=== PATIENT | male | born 1950 | race Caucasian/White ===

== ENCOUNTER 2016-10-15 01:40 | Inpatient (IN) | payer OTHER, MEDICARE ==
[~2016-10-15] VITALS: Ht 182.9 cm; Wt 186.2 kg
[~2016-10-15 01:40] MED LIST: ACID CONTROL150 MG PO; ADVAIR HFA120 INHAL1 IH; AMLODIPINE BESYL5 MG PO; AMLODIPINE PO; ANUCORT-HC25 MG PR; ANUCORT-HC25 MG RC; ASPIR 8181 M1 PO; ASPIR-LOW81 MG PO; ASPIRIN325 MG PO; AVELOX400 MG PO; AZOR 10/40 M1 TABLET; AZOR 10/40 M1 TABLET PO; BACTRIM,SEPT1 TABLET PO; BENICAR40 MG PO; BRINTELLIX10 MG PO; BRINTELLIX20 MG PO; BRINTELLIX5 MG PO; CARVEDILOL12.5 MG PO; CENTRUM SILVER1 EAC3 PO; CITALOPRAM HBR20 MG PO; CLINDAMYCIN HC300 MG PO; COLACE100 MG PO; COREG12.5 M1 PO; COUMADIN7.5 MG PO; COZAAR100 MG PO; DAILY VITAMIN1 EAC8 PO; DUONEB 2.5-0.5 M3 ML IPPB; FEROSUL325 MG PO; FLORASTOR250 MG PO; FUROSEMIDE40 MG; FUROSEMIDE40 MG PO; FUROSEMIDE80 MG PO; GEMFIBROZIL600 MG; GLUCOPHAGE1000 MG PO; Glucophage PO; HEARTBURN150 MG PO; HUMALOG100 UNIT/1 SC; HUMALOG100 UNIT/2 SC; HUMALOG100 UNITS/ SQ; HUMULIN N100 UNIT/2 SC; HUMULIN N100 UNITS/ SC; HYDROCHLOROTHIAZIDE PO; HYDROMORPHONE HC4 MG PO; INVOKANA300 MG PO; IRON325 MG PO; JANUVIA100 MG PO; JANUVIA25 M1 PO; K-DUR20 MEQ PO; KADIAN100 MG PO; KAPIDEX60 MG PO; KEPPRA500 MG PO; LANTUS 3 M100 UNITS/ SC; LANTUS 3 M100 UNITS1 SC; LANTUS100 UNIT/1 SQ; LASIX40 MG PO; LEVAQUIN500 MG PO; LEVAQUIN750 MG PO; LEVEMIR FL100 UNIT/1 SC; LEVEMIR FL100 UNITS/ SC; LEVETIRACETAM500 MG PO; LEVOFLOXACIN750 MG PO; LEXAPRO10 MG PO; LEXAPRO20 MG PO; LISINOPRIL10 MG PO; LOPID600 M1 PO; LOPID600 MG; LOPID600 MG PO; LOPRESSOR100 M1; LOPRESSOR100 MG PO; LOPRESSOR50 MG PO; LOSARTAN POTAS100 MG PO; LOVENOX30 MG/0.3 SC; LOW DOSE ASPIRI81 M2 PO; LYRICA150 MG PO; LYRICA50 MG PO; Lopid PO; Lopressor PO; METOLAZONE5 MG PO; METOPROLOL TAR100 MG PO; METOPROLOL TART25 MG PO; METOPROLOL TART50 MG; METOPROLOL TART50 MG PO; MIRALAX17 GM PO; MORPHINE SULFAT30 M2 PO; MS CONTIN,ORAMO15 M1 PO; MS CONTIN,ORAMO30 MG PO; NEURONTIN800 MG PO; NOVOLOG 10100 UNITS/ SC; NOVOLOG MI100 UNIT/4 SC; NOVOLOG PE100 UNITS/ SC; Neurontin PO; OMEPRAZOLE40 M1 PO; ONE-A-DAY ESSE1 EAC1 PO; OXYCODONE HCL10 MG PO; OXYCODONE-APAP1 EACH PO; PEPCID20 MG PO; PERCOCET 10/1 TABLET PO; PERCOCET 5/31 TABLET PO; PLETAL50 M2 PO; PREDNISONE20 MG PO; PROAIR HFA8.5 GM IH; PROTONIX40 MG PO; Percocet 10/325,Endo PO; RANITIDINE HCL150 M1 PO; ROXICODONE5 MG PO; SANTYL30 GM TP; SIMVASTATIN20 M1 PO; SIMVASTATIN20 MG; SIMVASTATIN20 MG PO; TAMSULOSIN HCL0.4 MG PO; TEKTURNA150 MG PO; TEKTURNA300 MG PO; THERAGRAN1 TABLET PO; TOUJEO SOL300 UNIT/1 SC; TRADJENTA5 MG PO; TRAZODONE HCL50 MG PO; TRIBENZOR 20-51 EAC1; TYLENOL EXTRA500 MG PO; VALSARTAN PO; VENTOLIN HFA18 GM IH; VITAMIN A DAY1 EACH PO; XARELTO20 MG PO; ZANTAC150 MG; ZANTAC150 MG PO; ZESTRIL,PRINIVI10 M1 PO; ZESTRIL,PRINIVI10 MG PO; ZOCOR80 MG PO; Zantac PO; Zeasorb Antifungal Treatment,Mitrazol Powder TP; Zocor PO
[2016-10-15 02:49] LABS: HEMATOCRIT 39.7 % (38.0-50.0); MCH 27.1 PG (29.0-34.0); MCHC 31.2 G/DL (30.0-36.0); MCV 86.7 FL (86-99); MEAN PLAT.VOLUME 10.3 uM^3 (9.0-12.4); PLATELET COUNT 168 K/uL (156-360); RBC DIS.WIDTH-CV 15.3 % (11.8-14.6); RBC DIS.WIDTH-SD 48.6 % (39-53); RED BLOOD COUNT 4.58 M/uL (4.00-5.50); WHITE BLOOD COUNT 10.6 K/uL (4.1-10.2)
[2016-10-15 03:03] LABS: CHLORIDE 98 mEq/L (99-109); POTASSIUM 4.7 mEq/L (3.7-5.4); SODIUM 135 mEq/L (136-147)
[2016-10-15 03:05] LABS: GLUCOSE 178 mg/dL (70-99)
[2016-10-15 03:06] LABS: ANION GAP 6 MEQ/L (2-14)
[2016-10-15 03:08] LABS: TROP-I INTERPRETATION NEGATIVE; TROPONIN-I < 0.01 ng/mL (0.0-0.30)
[2016-10-15 03:09] LABS: GFR ESTIMATE (CALCULATED) > 59 mL/min/
[2016-10-15 03:10] LABS: UREA NITROGEN (BUN) 22 mg/dL (9-23)
[2016-10-15 06:31] LABS: POINT-OF-CARE METER ID UU13113725
[2016-10-15 07:32] VITALS: BP 140/86
[2016-10-15 11:12] VITALS: BP 138/82
[2016-10-15 11:16] LABS: TROP-I INTERPRETATION NEGATIVE; TROPONIN-I 0.02 ng/mL (0.0-0.30)
[2016-10-15 12:59] LABS: POINT-OF-CARE METER ID UU13113725
[2016-10-15] MEDS ORDERED: PERCOCET 10/1 TABLET PO (15:33)
[2016-10-15] MEDS ORDERED: BRINTELLIX20 MG PO (15:40)
[2016-10-15 15:46] VITALS: BP 153/70
[2016-10-15 15:51] LABS: POINT-OF-CARE METER ID UU13113725
[2016-10-15 18:41] LABS: TROP-I INTERPRETATION NEGATIVE; TROPONIN-I 0.02 ng/mL (0.0-0.30)
[2016-10-15 19:31] VITALS: BP 160/62
[2016-10-15 21:17] LABS: POINT-OF-CARE METER ID UU13113725
[2016-10-16] VITALS (7 sets, daily range): BP systolic 122–151; BP diastolic 65–82
[2016-10-16 03:08] LABS: TROP-I INTERPRETATION NEGATIVE; TROPONIN-I 0.02 ng/mL (0.0-0.30)
[2016-10-16 05:52] LABS: MCHC 30.8 G/DL (30.0-36.0); MCV 87.6 FL (86-99); MEAN PLAT.VOLUME 10.4 uM^3 (9.0-12.4); PLATELET COUNT 158 K/uL (156-360); RBC DIS.WIDTH-CV 15.8 % (11.8-14.6); RBC DIS.WIDTH-SD 51.3 % (39-53); RED BLOOD COUNT 4.34 M/uL (4.00-5.50); WHITE BLOOD COUNT 12.2 K/uL (4.1-10.2)
[2016-10-16 06:20] LABS: ANION GAP 6 MEQ/L (2-14); CHLORIDE 93 MEQ/L (99-109); GFR ESTIMATE (CALCULATED) 50 mL/min/; GLUCOSE 149 mg/dL (70-99); POTASSIUM 4.6 MEQ/L (3.7-5.4); SAMPLE HEMOLYSIS CHECK 0; SAMPLE ICTERIC CHECK 0; SAMPLE LIPEMIA CHECK 0; SODIUM 134 MEQ/L (136-147); UREA NITROGEN (BUN) 27 mg/dL (9-23)
[2016-10-16 06:36] LABS: POINT-OF-CARE METER ID UU13113725
[2016-10-16 07:40] LABS: ABS NEUTROPHIL COUNT 10.6; ANISOCYTOSIS 1+; BAND NEUTROPHILS 1.8 % (0-8.0); BASOPHILS 0.9 %; EOSINOPHIL ABS CT 0.2; EOSINOPHILS 1.8 % (0-5.0); INSTRUMENT ABS NEUTROPHIL CT 10.5 K/uL; LYMPHOCYTES 5.3 % (15.0-45.0); MACROCYTES 1+; PLAT.SUFFICIENCY ADEQUATE; PLATELET CLUMPS PRESENT - PLATELET COUNT APPEARS ADQ.; SEG.NEUTROPHILS 84.9 % (46.0-76.0); SPHEROCYTES 1+
[2016-10-16 12:11] LABS: POINT-OF-CARE METER ID UU13113725
[2016-10-16 16:25] LABS: POINT-OF-CARE METER ID UU13113725
[2016-10-16 20:55] LABS: POINT-OF-CARE METER ID UU13113725
[2016-10-17 03:08] VITALS: BP 134/82
[2016-10-17 06:20] LABS: POINT-OF-CARE METER ID UU13113725
[2016-10-17 07:04] LABS: HEMATOCRIT 35.2 % (38.0-50.0); MCH 26.7 PG (29.0-34.0); MCHC 30.4 G/DL (30.0-36.0); MCV 87.8 FL (86-99); MEAN PLAT.VOLUME 10.7 uM^3 (9.0-12.4); PLATELET COUNT 174 K/uL (156-360); RBC DIS.WIDTH-CV 15.9 % (11.8-14.6); RBC DIS.WIDTH-SD 51.3 % (39-53); RED BLOOD COUNT 4.01 M/uL (4.00-5.50); WHITE BLOOD COUNT 14.8 K/uL (4.1-10.2)
[2016-10-17 07:37] LABS: ANION GAP 8 MEQ/L (2-14); CHLORIDE 91 MEQ/L (99-109); GFR ESTIMATE (CALCULATED) 26 mL/min/; GLUCOSE 127 mg/dL (70-99); POTASSIUM 5.1 MEQ/L (3.7-5.4); SAMPLE HEMOLYSIS CHECK 0; SAMPLE ICTERIC CHECK 0; SAMPLE LIPEMIA CHECK 0; SODIUM 131 MEQ/L (136-147); UREA NITROGEN (BUN) 40 mg/dL (9-23)
[2016-10-17 07:44] LABS: EOSINOPHIL (%) 0.7 % (0-5); EOSINOPHIL COUNT 0.1 K/uL (0-0.3); IMMATURE GRANULOCYTE (%) 0.7 % (0.0-0.7); IMMATURE GRANULOCYTE COUNT 0.1 K/uL; LYMPHOCYTE COUNT 0.7 K/uL (1.0-2.8); MONOCYTE (%) 6.3 % (3-12); MONOCYTE COUNT 0.9 K/uL (0-0.8); NEUTROPHIL (%) 87.7 % (45-76)
[2016-10-17 08:00] VITALS: BP 96/55
[2016-10-17 09:54] LABS: BASE EXCESS 9.8 mEq/L (-3 to +3); CARBOXY HGB 1.9 % (0-5); METHEMOGLOBIN 0.9 % (0-1.5)
[2016-10-17 09:55] LABS: BICARBONATE 38.9 mEq/L (22-26); COMMENTS - BLOOD GASES NEG A+C+; DEVICE NC; O2 FLOW 2.5 L/MIN; PCO2 81 mm Hg (35-45); PO2 85 mm Hg (80-100); SITE LR; TOTAL RESP RATE 16 resp/min; pH 7.29 (7.35-7.45)
[2016-10-17 12:07] LABS: POINT-OF-CARE METER ID UU13113725
[2016-10-17 12:56] VITALS: BP 114/56
[2016-10-17 16:00] VITALS: BP 135/59
[2016-10-17 16:50] LABS: POINT-OF-CARE METER ID UU13113725
[2016-10-17 19:37] VITALS: BP 115/69
[2016-10-17 22:04] LABS: POINT-OF-CARE METER ID UU13113725
[2016-10-17 23:08] VITALS: BP 129/65
[2016-10-18 03:39] VITALS: BP 127/68
[2016-10-18 05:43] LABS: POINT-OF-CARE METER ID UU13113725
[2016-10-18 06:35] LABS: HEMATOCRIT 36.1 % (38.0-50.0); MCH 26.3 PG (29.0-34.0); MCHC 30.2 G/DL (30.0-36.0); MCV 87.2 FL (86-99); MEAN PLAT.VOLUME 10.9 uM^3 (9.0-12.4); PLATELET COUNT 187 K/uL (156-360); RBC DIS.WIDTH-CV 15.2 % (11.8-14.6); RBC DIS.WIDTH-SD 48.9 % (39-53); RED BLOOD COUNT 4.14 M/uL (4.00-5.50); WHITE BLOOD COUNT 10.3 K/uL (4.1-10.2)
[2016-10-18 06:36] LABS: ANION GAP 7 MEQ/L (2-14); CHLORIDE 91 MEQ/L (99-109); GFR ESTIMATE (CALCULATED) 29 mL/min/; POTASSIUM 5.6 MEQ/L (3.7-5.4); SAMPLE HEMOLYSIS CHECK 0; SAMPLE ICTERIC CHECK 0; SAMPLE LIPEMIA CHECK 0; SODIUM 130 MEQ/L (136-147)
[2016-10-18 06:42] LABS: GLUCOSE 329 mg/dL (70-99); UREA NITROGEN (BUN) 63 mg/dL (9-23)
[2016-10-18 07:13] LABS: EOSINOPHIL (%) 0 % (0-5); IMMATURE GRANULOCYTE (%) 0.4 % (0.0-0.7); INSTRUMENT ABS NEUTROPHIL CT 9.7 K/uL; LYMPHOCYTE COUNT 0.3 K/uL (1.0-2.8); MONOCYTE (%) 2.5 % (3-12); MONOCYTE COUNT 0.3 K/uL (0-0.8); NEUTROPHIL (%) 93.7 % (45-76); NEUTROPHIL COUNT 9.7 K/uL (1.8-6.4)
[2016-10-18 07:29] VITALS: BP 119/55
[2016-10-18 11:08] VITALS: BP 144/73
[2016-10-18 11:44] LABS: BASE EXCESS 7.7 mEq/L (-3 to +3); BICARBONATE 35.6 mEq/L (22-26); CARBOXY HGB 1.4 % (0-5); COMMENTS - BLOOD GASES A+C+; DEVICE NC; METHEMOGLOBIN 0.9 % (0-1.5); O2 FLOW 4 L/MIN; PCO2 66 mm Hg (35-45); PO2 68 mm Hg (80-100); SITE LR; pH 7.34 (7.35-7.45)
[2016-10-18 16:17] VITALS: BP 140/85
[2016-10-18 20:36] VITALS: BP 160/80
[2016-10-18 23:46] VITALS: BP 157/64
[2016-10-19 03:30] VITALS: BP 138/85
[2016-10-19 07:25] VITALS: BP 165/79
[2016-10-19 07:58] LABS: ANION GAP 6 MEQ/L (2-14); CHLORIDE 94 MEQ/L (99-109); GFR ESTIMATE (CALCULATED) > 59 mL/min/; GLUCOSE 294 mg/dL (70-99); POTASSIUM 5.3 MEQ/L (3.7-5.4); SAMPLE HEMOLYSIS CHECK 0; SAMPLE ICTERIC CHECK 0; SAMPLE LIPEMIA CHECK 0; SODIUM 134 MEQ/L (136-147); UREA NITROGEN (BUN) 57 mg/dL (9-23)
[2016-10-19 11:11] LABS: POINT-OF-CARE METER ID UU13113725
[2016-10-19 12:47] VITALS: BP 173/81
[2016-10-19 16:37] VITALS: BP 177/84
[2016-10-19 19:50] VITALS: BP 187/86
[2016-10-19 23:10] VITALS: BP 180/83
[2016-10-20 03:26] VITALS: BP 176/80
[2016-10-20 06:08] LABS: POINT-OF-CARE METER ID UU13113725
[2016-10-20 07:26] LABS: ANION GAP 5 MEQ/L (2-14); CHLORIDE 94 MEQ/L (99-109); GFR ESTIMATE (CALCULATED) > 59 mL/min/; GLUCOSE 204 mg/dL (70-99); POTASSIUM 4.7 MEQ/L (3.7-5.4); SAMPLE HEMOLYSIS CHECK 0; SAMPLE ICTERIC CHECK 0; SAMPLE LIPEMIA CHECK 0; SODIUM 136 MEQ/L (136-147); UREA NITROGEN (BUN) 55 mg/dL (9-23)
[2016-10-20 07:42] VITALS: BP 174/76
[2016-10-20] MEDS ORDERED: DUONEB 2.5-0.5 M3 ML AEROSOL (07:59)
[2016-10-20 09:47] LABS: POINT-OF-CARE METER ID UU13113725
[2016-10-20 09:47] LABS: POINT-OF-CARE METER ID UU13113725
[2016-10-20 10:24] VITALS: BP 142/78
[2016-10-20 15:52] LABS: POINT-OF-CARE METER ID UU13113725
[2016-10-20 16:06] VITALS: BP 152/62
[2016-10-20 18:11] LABS: BASE EXCESS 16.5 mEq/L (-3 to +3); CARBOXY HGB 0.7 % (0-5); METHEMOGLOBIN 0.9 % (0-1.5); PO2 62 mm Hg (80-100)
[2016-10-20 18:13] LABS: BICARBONATE 42.1 mEq/L (22-26); PCO2 54 mm Hg (35-45)
[2016-10-20 22:47] VITALS: BP 155/60
[2016-10-21 06:44] LABS: POINT-OF-CARE METER ID UU13113725
[2016-10-21 07:39] VITALS: BP 178/85
[2016-10-21 11:40] LABS: POINT-OF-CARE METER ID UU13113725
== END 2016-10-21 13:18 | DRG 189 ==
LOC: EME → EDBD 01:40 → 5EAST 04:20 → EDOF 04:20 → 5EAST 05:58
PROVIDERS: Emergency Medicine; Family Medicine; Internal Medicine Pulmonary Disease
PROC: 5A09358 Assistance with Respiratory Ventilation, Less than 24 Consecutive Hours, Intermittent Positive Airway Pressure (ICD-10-PCS; principal; 2016-10-17)
DX: J96.22 Acute and chronic respiratory failure with hypercapnia (principal); I13.0 Hypertensive heart and chronic kidney disease with heart failure and stage 1 through stage 4 chronic kidney disease, or unspecified chronic kidney disease; I50.9 Heart failure, unspecified; N18.2 Chronic kidney disease, stage 2 (mild); E11.21 Type 2 diabetes mellitus with diabetic nephropathy; E11.22 Type 2 diabetes mellitus with diabetic chronic kidney disease; E11.42 Type 2 diabetes mellitus with diabetic polyneuropathy; E11.622 Type 2 diabetes mellitus with other skin ulcer; E11.621 Type 2 diabetes mellitus with foot ulcer; L97.811 Non-pressure chronic ulcer of other part of right lower leg limited to breakdown of skin; L97.519 Non-pressure chronic ulcer of other part of right foot with unspecified severity; L97.529 Non-pressure chronic ulcer of other part of left foot with unspecified severity; B95.62 Methicillin resistant Staphylococcus aureus infection as the cause of diseases classified elsewhere; E11.65 Type 2 diabetes mellitus with hyperglycemia; T38.0X5A Adverse effect of glucocorticoids and synthetic analogues, initial encounter; N17.9 Acute kidney failure, unspecified; T50.2X5A Adverse effect of carbonic-anhydrase inhibitors, benzothiadiazides and other diuretics, initial encounter; E11.649 Type 2 diabetes mellitus with hypoglycemia without coma; J96.21 Acute and chronic respiratory failure with hypoxia; E78.5 Hyperlipidemia, unspecified; F11.20 Opioid dependence, uncomplicated; G47.33 Obstructive sleep apnea (adult) (pediatric); I25.10 Atherosclerotic heart disease of native coronary artery without angina pectoris; I48.0 Paroxysmal atrial fibrillation; G40.909 Epilepsy, unspecified, not intractable, without status epilepticus; F32.9 Major depressive disorder, single episode, unspecified; K21.9 Gastro-esophageal reflux disease without esophagitis; R59.0 Localized enlarged lymph nodes; R91.1 Solitary pulmonary nodule; M15.9 Polyosteoarthritis, unspecified; M21.372 Foot drop, left foot; M21.371 Foot drop, right foot; E66.01 Morbid (severe) obesity due to excess calories; Z99.81 Dependence on supplemental oxygen; I25.2 Old myocardial infarction; Z95.1 Presence of aortocoronary bypass graft; Z86.73 Personal history of transient ischemic attack (TIA), and cerebral infarction without residual deficits; Z87.891 Personal history of nicotine dependence; Z79.4 Long term (current) use of insulin; Z79.82 Long term (current) use of aspirin
CPT/HCPCS: 36600; 71010; 71275; 80048; 82164 90; 82803; 82948; 83880; 84484; 85025; 85027; 93005; 93306; 94640; 94640 76; 94660; 94799; 99202; 99281; 99284; J0696; J1650; J1815; J1940; J2405; J2930; J7030; J7050; J7120; J7512

== ENCOUNTER 2016-10-31 17:21 | Inpatient (IN) | payer OTHER, MEDICARE ==
[~2016-10-31] VITALS: Ht 182.9 cm; Wt 198.0 kg
[~2016-10-31 17:21] MED LIST changes: +DUONEB 2.5-0.5 M3 ML AEROSOL
[2016-10-31 18:46] LABS: HEMATOCRIT 28.8 % (38.0-50.0); MCH 26.7 PG (29.0-34.0); MCHC 31.3 G/DL (30.0-36.0); MCV 85.5 FL (86-99); MEAN PLAT.VOLUME 9.3 uM^3 (9.0-12.4); PLATELET COUNT 352 K/uL (156-360); RBC DIS.WIDTH-CV 15.9 % (11.8-14.6); RBC DIS.WIDTH-SD 49.2 % (39-53); RED BLOOD COUNT 3.37 M/uL (4.00-5.50); WHITE BLOOD COUNT 18.7 K/uL (4.1-10.2)
[2016-10-31 18:48] LABS: CHLORIDE 85 mEq/L (99-109); SODIUM 128 mEq/L (136-147)
[2016-10-31 18:50] LABS: GLUCOSE 175 mg/dL (70-99)
[2016-10-31 18:51] LABS: ANION GAP 15 MEQ/L (2-14)
[2016-10-31 18:52] LABS: TOTAL BILIRUBIN 0.3 mg/dL (0.0-1.0)
[2016-10-31 18:53] LABS: ALKALINE PHOSPHATASE 150 IU/L (3-129)
[2016-10-31 18:54] LABS: GFR ESTIMATE (CALCULATED) 6 mL/min/
[2016-10-31 18:55] LABS: UREA NITROGEN (BUN) 98 mg/dL (9-23)
[2016-10-31 19:06] LABS: POTASSIUM 6.7 mEq/L (3.7-5.4)
[2016-10-31 20:19] LABS: ADD MIUA? YES; BILIRUBIN NEGATIVE; BLOOD LARGE; COLOR AMBER ((YELLOW)); GLUCOSE (STRIP) NEGATIVE; KETONES NEGATIVE; LEUKOCYTES MODERATE; NITRITE NEGATIVE; PROTEIN (STRIP) 30; SPECIFIC GRAVITY 1.016 (1.000-1.030); UROBILINOGEN 0.2 MG/DL (0.2-1.0)
[2016-10-31] MEDS ORDERED: ACIDOPHILUS1 EAC4 PO (20:24)
[2016-10-31] MEDS ORDERED: CIPRO500 MG PO (20:29)
[2016-10-31] MEDS ORDERED: DOXYCYCLINE HY100 M3 PO (20:30)
[2016-10-31 20:47] LABS: RED BLOOD CELLS TNTC /HPF (0-5); UCUL ADDED? YES
[2016-10-31 21:48] LABS: BASE EXCESS 2.7 mEq/L (-3 to +3); CARBOXY HGB 1.3 % (0-5); METHEMOGLOBIN 0.4 % (0-1.5); PO2 65 mm Hg (80-100)
[2016-10-31 21:49] LABS: COMMENTS - BLOOD GASES A+C+; DEVICE NC; PCO2 61 mm Hg (35-45); SITE RR
[2016-10-31 21:55] LABS: CREATINE KINASE 226 IU/L (1-294); URIC ACID 16.1 mg/dL (3.1-9.2)
[2016-10-31 22:50] LABS: MAGNESIUM 1.7 mg/dL (1.3-2.7)
[2016-10-31 22:53] LABS: INTER. NORMALIZED RATIO 1.3; PROTHROMBIN TIME 13.2 (9.2-11.2); PTT 34.5 (25-32)
[2016-10-31 23:53] LABS: C-REACTIVE PROTEIN > 240.0 MG/L (0-10)
[2016-11-01 00:48] LABS: HEMATOCRIT 28.7 % (38.0-50.0); MCV 84.7 FL (86-99)
[2016-11-01 00:56] VITALS: BP 133/61
[2016-11-01 01:07] LABS: CHLORIDE 87 mEq/L (99-109); SODIUM 131 mEq/L (136-147)
[2016-11-01 01:09] LABS: GLUCOSE 175 mg/dL (70-99)
[2016-11-01 01:10] LABS: ANION GAP 18 MEQ/L (2-14); POTASSIUM 6.2 mEq/L (3.7-5.4)
[2016-11-01 01:13] LABS: GFR ESTIMATE (CALCULATED) 6 mL/min/
[2016-11-01 01:14] LABS: UREA NITROGEN (BUN) 102 mg/dL (9-23)
[2016-11-01 04:45] VITALS: BP 128/61
[2016-11-01 05:24] LABS: HEMATOCRIT 27.9 % (38.0-50.0); MCHC 31.2 G/DL (30.0-36.0); MCV 86.6 FL (86-99); MEAN PLAT.VOLUME 9.6 uM^3 (9.0-12.4); PLATELET COUNT 374 K/uL (156-360); RBC DIS.WIDTH-CV 15.9 % (11.8-14.6); RBC DIS.WIDTH-SD 50.7 % (39-53); RED BLOOD COUNT 3.22 M/uL (4.00-5.50); WHITE BLOOD COUNT 16.3 K/uL (4.1-10.2)
[2016-11-01 06:03] LABS: ANION GAP 16 MEQ/L (2-14); CHLORIDE 86 MEQ/L (99-109); GFR ESTIMATE (CALCULATED) 6 mL/min/; GLUCOSE 148 mg/dL (70-99); POTASSIUM 5.7 MEQ/L (3.7-5.4); SAMPLE HEMOLYSIS CHECK 0; SAMPLE ICTERIC CHECK 0; SAMPLE LIPEMIA CHECK 0; SODIUM 130 MEQ/L (136-147)
[2016-11-01 06:04] LABS: UREA NITROGEN (BUN) 107 mg/dL (9-23)
[2016-11-01 07:00] VITALS: BP 133/59
[2016-11-01 08:34] LABS: IRON 15 MCG/DL (35-150)
[2016-11-01 09:46] LABS: C3 COMPLEMENT 54 MG/DL (58-170); C4 COMPLEMENT 47 MG/DL (10-40)
[2016-11-01 10:03] LABS: ANION GAP 16 MEQ/L (2-14); CHLORIDE 88 MEQ/L (99-109); CREATINE KINASE 216 IU/L (1-294); GFR ESTIMATE (CALCULATED) 6 mL/min/; GLUCOSE 164 mg/dL (70-99); POTASSIUM 5.9 MEQ/L (3.7-5.4); SAMPLE HEMOLYSIS CHECK 0; SAMPLE ICTERIC CHECK 0; SAMPLE LIPEMIA CHECK 0; SODIUM 132 MEQ/L (136-147)
[2016-11-01 10:05] LABS: UREA NITROGEN (BUN) 101 mg/dL (9-23)
[2016-11-01 10:15] LABS: HBSG INDEX 0.22
[2016-11-01 10:16] LABS: HPCA INDEX 0.19
[2016-11-01 10:17] LABS: AHBS INDEX 0.65; HEPATITIS B SURFACE ANTIBODY Nonreactive
[2016-11-01 10:19] LABS: UR CREATININE CONCENTRATION 352.4 MG/DL
[2016-11-01 10:23] LABS: METH RESISTANT S AUREUS PCR POSITIVE (NEGATIVE)
[2016-11-01 10:25] LABS: PROBE CHECK PASS
[2016-11-01 11:22] LABS: POINT-OF-CARE METER ID UU13113781
[2016-11-01 11:37] LABS: URINE TOTAL PROTEIN 177 MG/DL (0-10)
[2016-11-01 12:58] VITALS: BP 132/62
[2016-11-01 14:12] LABS: POINT-OF-CARE METER ID UU14174216
[2016-11-01 14:50] LABS: POINT-OF-CARE METER ID UU14174216
[2016-11-01 16:59] LABS: POINT-OF-CARE METER ID UU14174216
[2016-11-01 17:33] VITALS: BP 134/65
[2016-11-01 20:31] VITALS: BP 126/58
[2016-11-01 21:06] LABS: POINT-OF-CARE METER ID UU14174216
[2016-11-01 21:49] LABS: ANION GAP 17 MEQ/L (2-14); CHLORIDE 88 MEQ/L (99-109); GFR ESTIMATE (CALCULATED) 7 mL/min/; GLUCOSE 163 mg/dL (70-99); SAMPLE HEMOLYSIS CHECK 0; SAMPLE ICTERIC CHECK 0; SAMPLE LIPEMIA CHECK 0; SODIUM 132 MEQ/L (136-147)
[2016-11-01 21:53] LABS: UREA NITROGEN (BUN) 106 mg/dL (9-23)
[2016-11-02 00:29] VITALS: BP 122/56
[2016-11-02 03:46] VITALS: BP 112/52
[2016-11-02 05:58] LABS: HEMATOCRIT 26.7 % (38.0-50.0); MCH 26.6 PG (29.0-34.0); MCHC 30.3 G/DL (30.0-36.0); MCV 87.5 FL (86-99); MEAN PLAT.VOLUME 10.4 uM^3 (9.0-12.4); PLATELET COUNT 335 K/uL (156-360); RBC DIS.WIDTH-CV 16.2 % (11.8-14.6); RBC DIS.WIDTH-SD 52.3 % (39-53); RED BLOOD COUNT 3.05 M/uL (4.00-5.50); WHITE BLOOD COUNT 12.7 K/uL (4.1-10.2)
[2016-11-02 06:40] LABS: ANION GAP 18 MEQ/L (2-14); CHLORIDE 88 MEQ/L (99-109); GFR ESTIMATE (CALCULATED) 6 mL/min/; POTASSIUM 5.1 MEQ/L (3.7-5.4); SAMPLE HEMOLYSIS CHECK 0; SAMPLE ICTERIC CHECK 0; SAMPLE LIPEMIA CHECK 0; SODIUM 132 MEQ/L (136-147); VANCOMYCIN, TROUGH 10.4 MCG/ML (10-20)
[2016-11-02 06:48] LABS: GLUCOSE 80 mg/dL (70-99); UREA NITROGEN (BUN) 102 mg/dL (9-23)
[2016-11-02 08:15] VITALS: BP 121/56
[2016-11-02 11:29] LABS: INTER. NORMALIZED RATIO 1.3; PROTHROMBIN TIME 13.6 (9.2-11.2)
[2016-11-02 13:08] VITALS: BP 143/65
[2016-11-02 13:13] LABS: PTT 41.8 (25-32)
[2016-11-02 14:30] LABS: INTERNAL CONTROL VALID? YES
[2016-11-02 17:30] VITALS: BP 154/67
[2016-11-02 20:34] VITALS: BP 130/62
[2016-11-03 01:49] VITALS: BP 137/61
[2016-11-03 04:31] VITALS: BP 130/62
[2016-11-03 07:18] VITALS: BP 130/74
[2016-11-03 07:20] LABS: HEMATOCRIT 25.9 % (38.0-50.0); MCH 26.6 PG (29.0-34.0); MCHC 30.1 G/DL (30.0-36.0); MCV 88.4 FL (86-99); MEAN PLAT.VOLUME 9.1 uM^3 (9.0-12.4); PLATELET COUNT 302 K/uL (156-360); RBC DIS.WIDTH-CV 16.3 % (11.8-14.6); RBC DIS.WIDTH-SD 53.4 % (39-53); RED BLOOD COUNT 2.93 M/uL (4.00-5.50); WHITE BLOOD COUNT 11.8 K/uL (4.1-10.2)
[2016-11-03 07:31] LABS: INTER. NORMALIZED RATIO 1.4; PROTHROMBIN TIME 14.3 (9.2-11.2); PTT 59.1 (25-32)
[2016-11-03 08:12] LABS: ANION GAP 17 MEQ/L (2-14); CHLORIDE 88 MEQ/L (99-109); GFR ESTIMATE (CALCULATED) 6 mL/min/; GLUCOSE 105 mg/dL (70-99); POTASSIUM 4.9 MEQ/L (3.7-5.4); SAMPLE HEMOLYSIS CHECK 0; SAMPLE ICTERIC CHECK 0; SAMPLE LIPEMIA CHECK 0; SODIUM 133 MEQ/L (136-147); UREA NITROGEN (BUN) 114 mg/dL (9-23)
[2016-11-03 08:22] LABS: POINT-OF-CARE METER ID UU13113781
[2016-11-03 13:56] LABS: IFE GEL NO. 80-2
[2016-11-03 13:59] LABS: IFE GEL NO. 80-4
[2016-11-03 16:15] LABS: POINT-OF-CARE METER ID UU14174216
[2016-11-03 16:40] VITALS: BP 107/53
[2016-11-03 18:20] LABS: MYELOPEROXIDASE ANTIBODY (MPO) <1.0 AI (<1.0); PROTEINASE-3 ANTIBODY+ <1.0 AI (<1.0)
[2016-11-03 20:14] VITALS: BP 124/60
[2016-11-03 21:00] LABS: POINT-OF-CARE METER ID UU13113781
[2016-11-04 00:15] VITALS: BP 129/56
[2016-11-04 03:14] VITALS: BP 127/57
[2016-11-04 04:36] LABS: POINT-OF-CARE METER ID UU13113698
[2016-11-04 07:21] LABS: HEMATOCRIT 26.5 % (38.0-50.0); MCH 26.6 PG (29.0-34.0); MCHC 30.6 G/DL (30.0-36.0); MCV 86.9 FL (86-99); MEAN PLAT.VOLUME 9.3 uM^3 (9.0-12.4); PLATELET COUNT 258 K/uL (156-360); RBC DIS.WIDTH-SD 51.4 % (39-53); RED BLOOD COUNT 3.05 M/uL (4.00-5.50); WHITE BLOOD COUNT 13.6 K/uL (4.1-10.2)
[2016-11-04 07:58] LABS: INTER. NORMALIZED RATIO 2.4; PTT 57.4 (25-32)
[2016-11-04 08:23] LABS: PROTHROMBIN TIME 25.5 (9.2-11.2)
[2016-11-04 08:28] LABS: ANION GAP 20 MEQ/L (2-14); CHLORIDE 91 MEQ/L (99-109); GFR ESTIMATE (CALCULATED) 7 mL/min/; GLUCOSE 108 mg/dL (70-99); POTASSIUM 5.1 MEQ/L (3.7-5.4); SAMPLE HEMOLYSIS CHECK 0; SAMPLE ICTERIC CHECK 0; SAMPLE LIPEMIA CHECK 0; SODIUM 134 MEQ/L (136-147); UREA NITROGEN (BUN) 107 mg/dL (9-23)
[2016-11-04 12:24] VITALS: BP 121/57
[2016-11-04 16:18] VITALS: BP 148/65
[2016-11-04 19:35] VITALS: BP 195/68
[2016-11-05 00:01] VITALS: BP 141/67
[2016-11-05 03:51] VITALS: BP 134/60
[2016-11-05 06:00] LABS: POINT-OF-CARE METER ID UU13113717
[2016-11-05 06:58] LABS: EOSINOPHIL (%) 1.1 % (0-5); EOSINOPHIL COUNT 0.1 K/uL (0-0.3); HEMATOCRIT 26.4 % (38.0-50.0); IMMATURE GRANULOCYTE (%) 0.7 % (0.0-0.7); IMMATURE GRANULOCYTE COUNT 0.1 K/uL; INSTRUMENT ABS NEUTROPHIL CT 10.9 K/uL; LYMPHOCYTE COUNT 0.7 K/uL (1.0-2.8); MCH 26.6 PG (29.0-34.0); MCHC 30.3 G/DL (30.0-36.0); MCV 87.7 FL (86-99); MEAN PLAT.VOLUME 9.2 uM^3 (9.0-12.4); MONOCYTE (%) 4.3 % (3-12); MONOCYTE COUNT 0.5 K/uL (0-0.8); NEUTROPHIL COUNT 10.9 K/uL (1.8-6.4); PLATELET COUNT 244 K/uL (156-360); RBC DIS.WIDTH-CV 16.2 % (11.8-14.6); RBC DIS.WIDTH-SD 51.5 % (39-53); RED BLOOD COUNT 3.01 M/uL (4.00-5.50); WHITE BLOOD COUNT 12.3 K/uL (4.1-10.2)
[2016-11-05 07:04] LABS: INTER. NORMALIZED RATIO 3.5
[2016-11-05 07:10] LABS: PROTHROMBIN TIME 37.5 (9.2-11.2)
[2016-11-05 07:28] LABS: ANION GAP 13 MEQ/L (2-14); CHLORIDE 91 MEQ/L (99-109); GFR ESTIMATE (CALCULATED) 8 mL/min/; POTASSIUM 4.8 MEQ/L (3.7-5.4); SAMPLE HEMOLYSIS CHECK 0; SAMPLE ICTERIC CHECK 0; SAMPLE LIPEMIA CHECK 0; SODIUM 131 MEQ/L (136-147); UREA NITROGEN (BUN) 91 mg/dL (9-23); VANCOMYCIN, TROUGH 16.3 MCG/ML (10-20)
[2016-11-05 07:30] LABS: GLUCOSE 193 mg/dL (70-99)
[2016-11-05 12:24] LABS: POINT-OF-CARE METER ID UU13113717
[2016-11-05 15:46] VITALS: BP 143/65
[2016-11-05 16:46] LABS: POINT-OF-CARE METER ID UU13113717
[2016-11-05 19:40] VITALS: BP 139/60
[2016-11-05 20:40] LABS: POINT-OF-CARE METER ID UU14174225
[2016-11-05 23:32] VITALS: BP 132/60
[2016-11-06 04:00] VITALS: BP 124/60
[2016-11-06 06:18] LABS: HEMATOCRIT 28.2 % (38.0-50.0); MCH 26.9 PG (29.0-34.0); MCHC 29.8 G/DL (30.0-36.0); MCV 90.4 FL (86-99); MEAN PLAT.VOLUME 9.6 uM^3 (9.0-12.4); PLATELET COUNT 219 K/uL (156-360); RBC DIS.WIDTH-CV 16.1 % (11.8-14.6); RBC DIS.WIDTH-SD 53.6 % (39-53); RED BLOOD COUNT 3.12 M/uL (4.00-5.50); WHITE BLOOD COUNT 9.4 K/uL (4.1-10.2)
[2016-11-06 06:53] LABS: INTER. NORMALIZED RATIO 3.7; PROTHROMBIN TIME 39.5 (9.2-11.2)
[2016-11-06 07:41] LABS: ANION GAP 11 MEQ/L (2-14); CHLORIDE 94 MEQ/L (99-109); GFR ESTIMATE (CALCULATED) 10 mL/min/; GLUCOSE 152 mg/dL (70-99); SAMPLE HEMOLYSIS CHECK 0; SAMPLE ICTERIC CHECK 0; SAMPLE LIPEMIA CHECK 0; SODIUM 134 MEQ/L (136-147); UREA NITROGEN (BUN) 68 mg/dL (9-23)
[2016-11-06 07:43] VITALS: BP 167/74
[2016-11-06 08:05] LABS: POINT-OF-CARE METER ID UU14174225
[2016-11-06 11:49] VITALS: BP 167/74
[2016-11-06 16:01] VITALS: BP 167/74
[2016-11-06 20:24] VITALS: BP 130/59
[2016-11-06 21:55] LABS: POINT-OF-CARE METER ID UU13113717
[2016-11-06 23:49] VITALS: BP 116/53
[2016-11-07 03:47] VITALS: BP 119/56
[2016-11-07 05:55] LABS: POINT-OF-CARE METER ID UU13113717
[2016-11-07 06:22] LABS: HEMATOCRIT 27.9 % (38.0-50.0); MCH 26.4 PG (29.0-34.0); MCHC 29.4 G/DL (30.0-36.0); MCV 89.7 FL (86-99); MEAN PLAT.VOLUME 9.8 uM^3 (9.0-12.4); PLATELET COUNT 245 K/uL (156-360); RBC DIS.WIDTH-CV 15.9 % (11.8-14.6); RBC DIS.WIDTH-SD 53.1 % (39-53); RED BLOOD COUNT 3.11 M/uL (4.00-5.50); WHITE BLOOD COUNT 8.9 K/uL (4.1-10.2)
[2016-11-07 06:45] LABS: INTER. NORMALIZED RATIO 4.2; PROTHROMBIN TIME 44.6 (9.2-11.2)
[2016-11-07 07:53] VITALS: BP 134/94
[2016-11-07 09:16] LABS: ANION GAP 15 MEQ/L (2-14); CHLORIDE 95 MEQ/L (99-109); GFR ESTIMATE (CALCULATED) 8 mL/min/; GLUCOSE 139 mg/dL (70-99); POTASSIUM 5.3 MEQ/L (3.7-5.4); SAMPLE HEMOLYSIS CHECK 0; SAMPLE ICTERIC CHECK 0; SAMPLE LIPEMIA CHECK 0; SODIUM 135 MEQ/L (136-147); UREA NITROGEN (BUN) 83 mg/dL (9-23); VANCOMYCIN, TROUGH 17.6 MCG/ML (10-20)
[2016-11-07 16:03] VITALS: BP 142/63
[2016-11-07 20:04] VITALS: BP 130/57
[2016-11-07 23:23] VITALS: BP 132/60
[2016-11-08] VITALS (15 sets, daily range): BP systolic 82–157; BP diastolic 39–94
[2016-11-08 07:31] LABS: ANION GAP 12 MEQ/L (2-14); CHLORIDE 96 MEQ/L (99-109); GFR ESTIMATE (CALCULATED) 10 mL/min/; GLUCOSE 104 mg/dL (70-99); POTASSIUM 4.7 MEQ/L (3.7-5.4); SAMPLE HEMOLYSIS CHECK 0; SAMPLE ICTERIC CHECK 0; SAMPLE LIPEMIA CHECK 0; SODIUM 136 MEQ/L (136-147); UREA NITROGEN (BUN) 61 mg/dL (9-23)
[2016-11-08 07:37] LABS: PROTHROMBIN TIME 49.5 (9.2-11.2)
[2016-11-08 07:47] LABS: INTER. NORMALIZED RATIO 4.6
[2016-11-08 07:55] LABS: EOSINOPHIL (%) 3.9 % (0-5); EOSINOPHIL COUNT 0.3 K/uL (0-0.3); HEMATOCRIT 29.6 % (38.0-50.0); IMMATURE GRANULOCYTE (%) 0.6 % (0.0-0.7); IMMATURE GRANULOCYTE COUNT 0.1 K/uL; INSTRUMENT ABS NEUTROPHIL CT 7.1 K/uL; LYMPHOCYTE COUNT 0.6 K/uL (1.0-2.8); MCH 26.2 PG (29.0-34.0); MCHC 28.7 G/DL (30.0-36.0); MCV 91.4 FL (86-99); MEAN PLAT.VOLUME 9.8 uM^3 (9.0-12.4); MONOCYTE (%) 5.6 % (3-12); MONOCYTE COUNT 0.5 K/uL (0-0.8); NEUTROPHIL (%) 82.8 % (45-76); NEUTROPHIL COUNT 7.1 K/uL (1.8-6.4); PLATELET COUNT 263 K/uL (156-360); RBC DIS.WIDTH-CV 15.9 % (11.8-14.6); RBC DIS.WIDTH-SD 53.7 % (39-53); RED BLOOD COUNT 3.24 M/uL (4.00-5.50); WHITE BLOOD COUNT 8.6 K/uL (4.1-10.2)
[2016-11-08 11:23] LABS: POINT-OF-CARE METER ID UU14174225
[2016-11-08 11:26] LABS: BASE EXCESS 2.4 mEq/L (-3 to +3); BICARBONATE 31.6 mEq/L (22-26); CARBOXY HGB 1.8 % (0-5); METHEMOGLOBIN 1.1 % (0-1.5); PCO2 72 mm Hg (35-45); PO2 104 mm Hg (80-100); pH 7.25 (7.35-7.45)
[2016-11-08 11:27] LABS: COMMENTS - BLOOD GASES A+C+; DEVICE NC; O2 FLOW 4 L/MIN; SITE LR
[2016-11-08 11:28] LABS: TOTAL RESP RATE 12 resp/min
[2016-11-08 14:02] LABS: BASE EXCESS 3.4 mEq/L (-3 to +3); BICARBONATE 31.6 mEq/L (22-26); CARBOXY HGB 1.4 % (0-5); METHEMOGLOBIN 1.4 % (0-1.5); PCO2 72 mm Hg (35-45); PO2 117 mm Hg (80-100); pH 7.25 (7.35-7.45)
[2016-11-08 14:03] LABS: COMMENTS - BLOOD GASES A+C+; DEVICE 840; FI02 60 %; MECHANICAL RATE 20 resp/min; MODE A/C; PEEP 5 CM/H20; SITE RRA; TIDAL VOLUME 550 ML; TOTAL RESP RATE 27 resp/min
[2016-11-08 15:49] LABS: BASE EXCESS 4.2 mEq/L (-3 to +3); BICARBONATE 30.1 mEq/L (22-26); METHEMOGLOBIN 1.3 % (0-1.5); PCO2 52 mm Hg (35-45); PO2 167 mm Hg (80-100); pH 7.37 (7.35-7.45)
[2016-11-08 15:50] LABS: COMMENTS - BLOOD GASES A+C+; DEVICE VENT; FI02 60 %; MECHANICAL RATE 22 resp/min; MODE A/C; PEEP 5 CM/H20; SITE RR; TIDAL VOLUME 600 ML; TOTAL RESP RATE 22 resp/min
[2016-11-08 16:08] LABS: POINT-OF-CARE METER ID UU14162636
[2016-11-09] VITALS (24 sets, daily range): BP systolic 124–162; BP diastolic 46–98
[2016-11-09 05:29] LABS: HEMATOCRIT 30.3 % (38.0-50.0); MCH 26.6 PG (29.0-34.0); MCHC 29.4 G/DL (30.0-36.0); MCV 90.4 FL (86-99); MEAN PLAT.VOLUME 9.8 uM^3 (9.0-12.4); PLATELET COUNT 268 K/uL (156-360); RBC DIS.WIDTH-CV 15.6 % (11.8-14.6); RBC DIS.WIDTH-SD 52.2 % (39-53); RED BLOOD COUNT 3.35 M/uL (4.00-5.50); WHITE BLOOD COUNT 6.6 K/uL (4.1-10.2)
[2016-11-09 05:29] LABS: HEMATOCRIT 30.2 % (38.0-50.0); MCH 26.4 PG (29.0-34.0); MCHC 29.1 G/DL (30.0-36.0); MCV 90.7 FL (86-99); MEAN PLAT.VOLUME 10.2 uM^3 (9.0-12.4); PLATELET COUNT 272 K/uL (156-360); RBC DIS.WIDTH-CV 15.9 % (11.8-14.6); RBC DIS.WIDTH-SD 52.9 % (39-53); RED BLOOD COUNT 3.33 M/uL (4.00-5.50); WHITE BLOOD COUNT 6.4 K/uL (4.1-10.2)
[2016-11-09 05:45] LABS: INTER. NORMALIZED RATIO 1.8; PROTHROMBIN TIME 18.5 (9.2-11.2)
[2016-11-09 06:12] LABS: ANION GAP 19 MEQ/L (2-14); CHLORIDE 94 MEQ/L (99-109); GFR ESTIMATE (CALCULATED) 9 mL/min/; SAMPLE HEMOLYSIS CHECK 0; SAMPLE ICTERIC CHECK 0; SAMPLE LIPEMIA CHECK 0; SODIUM 134 MEQ/L (136-147); UREA NITROGEN (BUN) 75 mg/dL (9-23)
[2016-11-09 06:36] LABS: GLUCOSE 214 mg/dL (70-99); POTASSIUM 5.7 MEQ/L (3.7-5.4)
[2016-11-09 08:52] LABS: POINT-OF-CARE USER ID AGYTJR
[2016-11-09 10:32] LABS: POINT-OF-CARE METER ID UU13113731
[2016-11-09 12:40] LABS: POINT-OF-CARE USER ID AGYTJR
[2016-11-09 18:16] LABS: POINT-OF-CARE USER ID AGYTJR
[2016-11-10] VITALS (24 sets, daily range): BP systolic 135–201; BP diastolic 42–87
[2016-11-10 05:31] LABS: POINT-OF-CARE METER ID UU14162636
[2016-11-10 08:29] LABS: INTER. NORMALIZED RATIO 1.2; PROTHROMBIN TIME 12.7 (9.2-11.2)
[2016-11-10 09:02] LABS: ANION GAP 16 MEQ/L (2-14); CHLORIDE 95 MEQ/L (99-109); GLUCOSE 275 mg/dL (70-99); SAMPLE HEMOLYSIS CHECK 0; SAMPLE ICTERIC CHECK 0; SAMPLE LIPEMIA CHECK 0; SODIUM 134 MEQ/L (136-147); UREA NITROGEN (BUN) 76 mg/dL (9-23)
[2016-11-10 09:07] LABS: GFR ESTIMATE (CALCULATED) 12 mL/min/
[2016-11-10 12:06] LABS: POINT-OF-CARE METER ID UU13113731
[2016-11-10 18:19] LABS: BASE EXCESS 0.5 mEq/L (-3 to +3); CARBOXY HGB 0.7 % (0-5); PCO2 45 mm Hg (35-45); PO2 86 mm Hg (80-100); pH 7.37 (7.35-7.45)
[2016-11-10 18:20] LABS: COMMENTS - BLOOD GASES A+C+; CONTINUOUS POS AIRWAY PRESSURE 5 cm H2O; DEVICE VENT; FI02 30 %; HEMOGLOBIN 9.5 (12.5-16.6); MODE SPON:TC; SITE LR; TOTAL RESP RATE 17 resp/min
[2016-11-10 18:28] LABS: POINT-OF-CARE METER ID UU13113731
[2016-11-10 21:51] LABS: POINT-OF-CARE METER ID UU13113731
[2016-11-11] VITALS (18 sets, daily range): BP systolic 118–187; BP diastolic 48–92
[2016-11-11 00:23] LABS: POINT-OF-CARE METER ID UU13113731
[2016-11-11 06:07] LABS: HEMATOCRIT 31.8 % (38.0-50.0); MCH 26.5 PG (29.0-34.0); MCHC 29.9 G/DL (30.0-36.0); MCV 88.6 FL (86-99); PLATELET COUNT 288 K/uL (156-360); RBC DIS.WIDTH-CV 15.5 % (11.8-14.6); RBC DIS.WIDTH-SD 50.7 % (39-53); RED BLOOD COUNT 3.59 M/uL (4.00-5.50); WHITE BLOOD COUNT 7.9 K/uL (4.1-10.2)
[2016-11-11 06:10] LABS: INTER. NORMALIZED RATIO 1.3
[2016-11-11 06:24] LABS: ANION GAP 15 MEQ/L (2-14); CHLORIDE 93 MEQ/L (99-109); GFR ESTIMATE (CALCULATED) 10 mL/min/; GLUCOSE 307 mg/dL (70-99); POTASSIUM 5.3 MEQ/L (3.7-5.4); SAMPLE HEMOLYSIS CHECK 0; SAMPLE ICTERIC CHECK 0; SAMPLE LIPEMIA CHECK 0; SODIUM 134 MEQ/L (136-147); UREA NITROGEN (BUN) 93 mg/dL (9-23)
[2016-11-11 06:34] LABS: POINT-OF-CARE METER ID UU13113731
[2016-11-11 11:51] LABS: POINT-OF-CARE METER ID UU14162636
[2016-11-11 18:32] LABS: POINT-OF-CARE METER ID UU13113748
[2016-11-11 23:30] LABS: POINT-OF-CARE METER ID UU13113748
[2016-11-12] VITALS (9 sets, daily range): BP systolic 109–177; BP diastolic 51–80
[2016-11-12 07:41] LABS: INTER. NORMALIZED RATIO 1.6; PROTHROMBIN TIME 16.1 (9.2-11.2)
[2016-11-12 07:56] LABS: ANION GAP 12 MEQ/L (2-14); CHLORIDE 93 MEQ/L (99-109); GFR ESTIMATE (CALCULATED) 12 mL/min/; GLUCOSE 299 mg/dL (70-99); POTASSIUM 4.8 MEQ/L (3.7-5.4); SAMPLE HEMOLYSIS CHECK 0; SAMPLE ICTERIC CHECK 0; SAMPLE LIPEMIA CHECK 0; SODIUM 129 MEQ/L (136-147); UREA NITROGEN (BUN) 83 mg/dL (9-23)
[2016-11-12 16:51] LABS: POINT-OF-CARE METER ID UU14174216
[2016-11-12 21:28] LABS: POINT-OF-CARE METER ID UU14174216
[2016-11-13 05:27] VITALS: BP 162/70
[2016-11-13 07:12] LABS: INTER. NORMALIZED RATIO 1.9; PROTHROMBIN TIME 19.4 (9.2-11.2)
[2016-11-13 07:25] LABS: ANION GAP 11 MEQ/L (2-14); CHLORIDE 97 MEQ/L (99-109); GFR ESTIMATE (CALCULATED) 12 mL/min/; GLUCOSE 298 mg/dL (70-99); POTASSIUM 5.3 MEQ/L (3.7-5.4); SAMPLE HEMOLYSIS CHECK 0; SAMPLE ICTERIC CHECK 0; SAMPLE LIPEMIA CHECK 0; SODIUM 134 MEQ/L (136-147); UREA NITROGEN (BUN) 99 mg/dL (9-23)
[2016-11-13 07:27] LABS: POINT-OF-CARE METER ID UU13113781
[2016-11-13 09:05] VITALS: BP 147/65
[2016-11-13 10:35] LABS: POINT-OF-CARE METER ID UU13113781
[2016-11-13 12:20] VITALS: BP 170/77
[2016-11-13 16:02] LABS: POINT-OF-CARE METER ID UU13113781
[2016-11-13 16:53] VITALS: BP 197/81
[2016-11-13 19:55] VITALS: BP 168/72
[2016-11-13 21:21] LABS: POINT-OF-CARE METER ID UU13113698
[2016-11-13 23:13] VITALS: BP 160/72
[2016-11-14 02:48] VITALS: BP 160/78
[2016-11-14 06:29] LABS: MCH 26.8 PG (29.0-34.0); MCV 89.3 FL (86-99); MEAN PLAT.VOLUME 10.2 uM^3 (9.0-12.4); PLATELET COUNT 223 K/uL (156-360); RBC DIS.WIDTH-CV 15.5 % (11.8-14.6); RBC DIS.WIDTH-SD 50.4 % (39-53); RED BLOOD COUNT 3.36 M/uL (4.00-5.50); WHITE BLOOD COUNT 6.3 K/uL (4.1-10.2)
[2016-11-14 06:30] LABS: INTER. NORMALIZED RATIO 2.2; PROTHROMBIN TIME 23.4 (9.2-11.2)
[2016-11-14 07:00] LABS: ANION GAP 8 MEQ/L (2-14); CHLORIDE 97 MEQ/L (99-109); GFR ESTIMATE (CALCULATED) 14 mL/min/; GLUCOSE 259 mg/dL (70-99); POTASSIUM 5.5 MEQ/L (3.7-5.4); SAMPLE HEMOLYSIS CHECK 0; SAMPLE ICTERIC CHECK 0; SAMPLE LIPEMIA CHECK 0; SODIUM 133 MEQ/L (136-147)
[2016-11-14 07:02] VITALS: BP 186/82
[2016-11-14 07:05] LABS: UREA NITROGEN (BUN) 109 mg/dL (9-23)
[2016-11-14 07:50] LABS: EOSINOPHIL (%) 2.5 % (0-5); EOSINOPHIL COUNT 0.2 K/uL (0-0.3); HEMATOCRIT 30.5 % (38.0-50.0); IMMATURE GRANULOCYTE (%) 1.2 % (0.0-0.7); IMMATURE GRANULOCYTE COUNT 0.1 K/uL; INSTRUMENT ABS NEUTROPHIL CT 5.4 K/uL; LYMPHOCYTE COUNT 0.5 K/uL (1.0-2.8); MCH 26.1 PG (29.0-34.0); MCHC 29.2 G/DL (30.0-36.0); MCV 89.4 FL (86-99); MEAN PLAT.VOLUME 10.5 uM^3 (9.0-12.4); MONOCYTE (%) 5.6 % (3-12); MONOCYTE COUNT 0.4 K/uL (0-0.8); NEUTROPHIL (%) 83.2 % (45-76); NEUTROPHIL COUNT 5.4 K/uL (1.8-6.4); PLATELET COUNT 235 K/uL (156-360); RBC DIS.WIDTH-CV 15.6 % (11.8-14.6); RBC DIS.WIDTH-SD 51.6 % (39-53); RED BLOOD COUNT 3.41 M/uL (4.00-5.50); WHITE BLOOD COUNT 6.5 K/uL (4.1-10.2)
[2016-11-14 13:10] VITALS: BP 177/81
[2016-11-14 13:45] LABS: POINT-OF-CARE METER ID UU14174216; POINT-OF-CARE USER ID ENVKC36
[2016-11-14 16:00] VITALS: BP 135/64
[2016-11-14 17:11] LABS: POINT-OF-CARE METER ID UU13113698; POINT-OF-CARE USER ID ENVKC36
[2016-11-14 19:21] VITALS: BP 179/77
[2016-11-14 23:57] VITALS: BP 156/71
[2016-11-15 04:10] VITALS: BP 155/78
[2016-11-15 06:15] LABS: HEMATOCRIT 30.3 % (38.0-50.0); MCH 27.4 PG (29.0-34.0); MCHC 30.7 G/DL (30.0-36.0); MCV 89.4 FL (86-99); MEAN PLAT.VOLUME 10.2 uM^3 (9.0-12.4); PLATELET COUNT 218 K/uL (156-360); RBC DIS.WIDTH-CV 15.4 % (11.8-14.6); RED BLOOD COUNT 3.39 M/uL (4.00-5.50); WHITE BLOOD COUNT 6.8 K/uL (4.1-10.2)
[2016-11-15 06:28] LABS: INTER. NORMALIZED RATIO 2.9; PROTHROMBIN TIME 30.3 (9.2-11.2)
[2016-11-15 06:54] LABS: ANION GAP 7 MEQ/L (2-14); CHLORIDE 98 MEQ/L (99-109); GFR ESTIMATE (CALCULATED) 22 mL/min/; GLUCOSE 233 mg/dL (70-99); POTASSIUM 5.1 MEQ/L (3.7-5.4); SAMPLE HEMOLYSIS CHECK 0; SAMPLE ICTERIC CHECK 0; SAMPLE LIPEMIA CHECK 0; SODIUM 135 MEQ/L (136-147); UREA NITROGEN (BUN) 71 mg/dL (9-23)
[2016-11-15 07:55] VITALS: BP 198/89
[2016-11-15 16:30] VITALS: BP 146/73
[2016-11-15 19:14] VITALS: BP 167/78
[2016-11-15 20:56] LABS: POINT-OF-CARE METER ID UU13113698
[2016-11-15 23:17] VITALS: BP 166/87
[2016-11-16 04:00] VITALS: BP 164/75
[2016-11-16 05:42] LABS: HEMATOCRIT 30.8 % (38.0-50.0); MCH 26.7 PG (29.0-34.0); MCHC 30.2 G/DL (30.0-36.0); MCV 88.5 FL (86-99); MEAN PLAT.VOLUME 10.4 uM^3 (9.0-12.4); PLATELET COUNT 217 K/uL (156-360); RBC DIS.WIDTH-CV 15.5 % (11.8-14.6); RBC DIS.WIDTH-SD 49.6 % (39-53); RED BLOOD COUNT 3.48 M/uL (4.00-5.50); WHITE BLOOD COUNT 7.8 K/uL (4.1-10.2)
[2016-11-16 06:01] LABS: INTER. NORMALIZED RATIO 3.4; PROTHROMBIN TIME 36.3 (9.2-11.2)
[2016-11-16 06:09] LABS: ANION GAP 7 MEQ/L (2-14); CHLORIDE 97 MEQ/L (99-109); GFR ESTIMATE (CALCULATED) 24 mL/min/; GLUCOSE 212 mg/dL (70-99); POTASSIUM 4.8 MEQ/L (3.7-5.4); SAMPLE HEMOLYSIS CHECK 0; SAMPLE ICTERIC CHECK 0; SAMPLE LIPEMIA CHECK 0; SODIUM 133 MEQ/L (136-147); UREA NITROGEN (BUN) 85 mg/dL (9-23)
[2016-11-16 08:36] VITALS: BP 156/74
[2016-11-16 11:56] LABS: POINT-OF-CARE METER ID UU13113781; POINT-OF-CARE USER ID NUTSLF44
[2016-11-16 13:12] LABS: C DIFF TOXIN NEGATIVE (NEGATIVE)
[2016-11-16 13:16] LABS: PROBE CHECK PASS; SPECIMEN PROCESSING CONTROL PASS
[2016-11-16 16:44] VITALS: BP 165/86
[2016-11-16 17:11] LABS: POINT-OF-CARE METER ID UU13113781; POINT-OF-CARE USER ID NUTSLF44
[2016-11-16 19:08] VITALS: BP 173/77
[2016-11-16 20:39] LABS: POINT-OF-CARE METER ID UU13113698
[2016-11-16 23:54] VITALS: BP 159/78
[2016-11-17 04:05] VITALS: BP 168/87
[2016-11-17 05:54] LABS: INTER. NORMALIZED RATIO 4.2; PROTHROMBIN TIME 44.2 (9.2-11.2)
[2016-11-17 06:10] LABS: ANION GAP 8 MEQ/L (2-14); CHLORIDE 98 MEQ/L (99-109); GFR ESTIMATE (CALCULATED) 28 mL/min/; GLUCOSE 158 mg/dL (70-99); POTASSIUM 4.4 MEQ/L (3.7-5.4); SAMPLE HEMOLYSIS CHECK 0; SAMPLE ICTERIC CHECK 0; SAMPLE LIPEMIA CHECK 0; SODIUM 135 MEQ/L (136-147); UREA NITROGEN (BUN) 95 mg/dL (9-23)
[2016-11-17 07:31] LABS: POINT-OF-CARE METER ID UU14174216
[2016-11-17 10:53] VITALS: BP 148/76
[2016-11-17 16:19] LABS: POINT-OF-CARE METER ID UU14174216
[2016-11-17 17:00] VITALS: BP 180/81
[2016-11-17 20:30] VITALS: BP 183/83
[2016-11-17 23:19] VITALS: BP 180/84
[2016-11-17 23:33] VITALS: BP 185/82
[2016-11-18] VITALS (14 sets, daily range): BP systolic 133–177; BP diastolic 55–83
[2016-11-18 05:59] LABS: MCH 27.5 PG (29.0-34.0); MCHC 30.6 G/DL (30.0-36.0); MCV 89.6 FL (86-99); MEAN PLAT.VOLUME 10.6 uM^3 (9.0-12.4); PLATELET COUNT 182 K/uL (156-360); RBC DIS.WIDTH-CV 15.9 % (11.8-14.6); RBC DIS.WIDTH-SD 51.3 % (39-53); RED BLOOD COUNT 3.46 M/uL (4.00-5.50); WHITE BLOOD COUNT 5.9 K/uL (4.1-10.2)
[2016-11-18 06:25] LABS: ANION GAP 7 MEQ/L (2-14); CHLORIDE 100 MEQ/L (99-109); GFR ESTIMATE (CALCULATED) 34 mL/min/; GLUCOSE 145 mg/dL (70-99); POTASSIUM 4.6 MEQ/L (3.7-5.4); SAMPLE HEMOLYSIS CHECK 0; SAMPLE ICTERIC CHECK 0; SAMPLE LIPEMIA CHECK 0; SODIUM 139 MEQ/L (136-147); UREA NITROGEN (BUN) 95 mg/dL (9-23)
[2016-11-18 07:14] LABS: INTER. NORMALIZED RATIO 1.7; PROTHROMBIN TIME 17.2 (9.2-11.2)
[2016-11-18 14:59] LABS: EOSINOPHIL (%) 0.9 % (0-5); EOSINOPHIL COUNT 0.1 K/uL (0-0.3); HEMATOCRIT 23.2 % (38.0-50.0); IMMATURE GRANULOCYTE (%) 1.2 % (0.0-0.7); IMMATURE GRANULOCYTE COUNT 0.2 K/uL; INSTRUMENT ABS NEUTROPHIL CT 12.8 K/uL; LYMPHOCYTE COUNT 0.7 K/uL (1.0-2.8); MCH 27.8 PG (29.0-34.0); MCHC 30.6 G/DL (30.0-36.0); MEAN PLAT.VOLUME 10.8 uM^3 (9.0-12.4); MONOCYTE (%) 6.2 % (3-12); MONOCYTE COUNT 0.9 K/uL (0-0.8); NEUTROPHIL (%) 86.8 % (45-76); NEUTROPHIL COUNT 12.8 K/uL (1.8-6.4); PLATELET COUNT 229 K/uL (156-360); RBC DIS.WIDTH-CV 15.9 % (11.8-14.6); RBC DIS.WIDTH-SD 52.7 % (39-53); WHITE BLOOD COUNT 14.8 K/uL (4.1-10.2)
[2016-11-18 15:12] LABS: TROP-I INTERPRETATION NEGATIVE; TROPONIN-I 0.02 ng/mL (0.0-0.30)
[2016-11-18 15:43] LABS: RED BLOOD COUNT 2.55 M/uL (4.00-5.50)
[2016-11-18 20:43] LABS: POINT-OF-CARE USER ID ENVMNS
[2016-11-18 23:41] LABS: HEMATOCRIT 25.7 % (38.0-50.0); MCV 87.7 FL (86-99)
[2016-11-19] VITALS (13 sets, daily range): BP systolic 112–163; BP diastolic 58–76
[2016-11-19 06:04] LABS: EOSINOPHIL (%) 1.1 % (0-5); EOSINOPHIL COUNT 0.1 K/uL (0-0.3); HEMATOCRIT 26.1 % (38.0-50.0); IMMATURE GRANULOCYTE COUNT 0.1 K/uL; LYMPHOCYTE COUNT 0.8 K/uL (1.0-2.8); MCH 28.2 PG (29.0-34.0); MCHC 31.8 G/DL (30.0-36.0); MCV 88.8 FL (86-99); MEAN PLAT.VOLUME 10.8 uM^3 (9.0-12.4); MONOCYTE (%) 9.2 % (3-12); MONOCYTE COUNT 0.8 K/uL (0-0.8); NEUTROPHIL (%) 79.7 % (45-76); PLATELET COUNT 180 K/uL (156-360); RBC DIS.WIDTH-CV 15.7 % (11.8-14.6); RBC DIS.WIDTH-SD 50.7 % (39-53); RED BLOOD COUNT 2.94 M/uL (4.00-5.50); WHITE BLOOD COUNT 8.8 K/uL (4.1-10.2)
[2016-11-19 06:13] LABS: INTER. NORMALIZED RATIO 1.2; PROTHROMBIN TIME 12.7 (9.2-11.2)
[2016-11-19 06:19] LABS: TROP-I INTERPRETATION NEGATIVE; TROPONIN-I 0.03 ng/mL (0.0-0.30)
[2016-11-19 09:20] LABS: ANION GAP 8 MEQ/L (2-14); CHLORIDE 100 MEQ/L (99-109); GFR ESTIMATE (CALCULATED) 30 mL/min/; GLUCOSE 159 mg/dL (70-99); SAMPLE HEMOLYSIS CHECK 0; SAMPLE ICTERIC CHECK 0; SAMPLE LIPEMIA CHECK 0; SODIUM 136 MEQ/L (136-147); UREA NITROGEN (BUN) 94 mg/dL (9-23)
[2016-11-20] VITALS (7 sets, daily range): BP systolic 110–177; BP diastolic 60–77
[2016-11-20 07:54] LABS: POINT-OF-CARE METER ID UU13113781
[2016-11-20 09:01] LABS: INTER. NORMALIZED RATIO 1.2; PROTHROMBIN TIME 12.1 (9.2-11.2); PTT 40.4 (25-32)
[2016-11-20 09:05] LABS: HEMATOCRIT 22.2 % (38.0-50.0); MCH 27.6 PG (29.0-34.0); MCHC 31.1 G/DL (30.0-36.0); MCV 88.8 FL (86-99); MEAN PLAT.VOLUME 10.8 uM^3 (9.0-12.4); PLATELET COUNT 139 K/uL (156-360); RBC DIS.WIDTH-CV 15.7 % (11.8-14.6); RBC DIS.WIDTH-SD 50.5 % (39-53); WHITE BLOOD COUNT 5.9 K/uL (4.1-10.2)
[2016-11-20 11:50] LABS: POINT-OF-CARE METER ID UU13113781
[2016-11-20 16:31] LABS: POINT-OF-CARE METER ID UU13113781
[2016-11-20 21:14] LABS: POINT-OF-CARE METER ID UU13113698
[2016-11-20 22:56] LABS: HEMATOCRIT 23.4 % (38.0-50.0)
[2016-11-21] VITALS (8 sets, daily range): BP systolic 144–178; BP diastolic 60–75
[2016-11-21 05:38] LABS: HEMATOCRIT 24.1 % (38.0-50.0); MCH 27.6 PG (29.0-34.0); MCHC 31.1 G/DL (30.0-36.0); MCV 88.6 FL (86-99); MEAN PLAT.VOLUME 11.2 uM^3 (9.0-12.4); PLATELET COUNT 145 K/uL (156-360); RBC DIS.WIDTH-CV 15.4 % (11.8-14.6); RBC DIS.WIDTH-SD 49.4 % (39-53); RED BLOOD COUNT 2.72 M/uL (4.00-5.50); WHITE BLOOD COUNT 5.1 K/uL (4.1-10.2)
[2016-11-21 05:45] LABS: INTER. NORMALIZED RATIO 1.2; PROTHROMBIN TIME 12.6 (9.2-11.2)
[2016-11-21 06:07] LABS: ANION GAP 7 MEQ/L (2-14); CHLORIDE 101 MEQ/L (99-109); GFR ESTIMATE (CALCULATED) 46 mL/min/; GLUCOSE 186 mg/dL (70-99); POTASSIUM 5.4 MEQ/L (3.7-5.4); SAMPLE HEMOLYSIS CHECK 0; SAMPLE ICTERIC CHECK 0; SAMPLE LIPEMIA CHECK 0; SODIUM 137 MEQ/L (136-147); UREA NITROGEN (BUN) 72 mg/dL (9-23)
[2016-11-21 06:17] LABS: PTT 55.8 (25-32)
[2016-11-21 07:55] LABS: POINT-OF-CARE METER ID UU13113781; POINT-OF-CARE USER ID NUTSLF44
[2016-11-21 12:42] LABS: POINT-OF-CARE METER ID UU13113781; POINT-OF-CARE USER ID NUTSLF44
[2016-11-21 17:14] LABS: POINT-OF-CARE METER ID UU13113781; POINT-OF-CARE USER ID NUTSLF44
[2016-11-22 06:10] LABS: ANION GAP 6 MEQ/L (2-14); CHLORIDE 101 MEQ/L (99-109); GFR ESTIMATE (CALCULATED) 59 mL/min/; GLUCOSE 160 mg/dL (70-99); POTASSIUM 5.2 MEQ/L (3.7-5.4); SAMPLE HEMOLYSIS CHECK 0; SAMPLE ICTERIC CHECK 0; SAMPLE LIPEMIA CHECK 0; SODIUM 137 MEQ/L (136-147); UREA NITROGEN (BUN) 62 mg/dL (9-23)
[2016-11-22 06:17] LABS: INTER. NORMALIZED RATIO 1.2; PROTHROMBIN TIME 12.5 (9.2-11.2); PTT 38.3 (25-32)
[2016-11-22 07:34] VITALS: BP 177/78
[2016-11-22 08:12] LABS: POINT-OF-CARE METER ID UU13113698; POINT-OF-CARE USER ID ENVKC36
[2016-11-22 11:12] VITALS: BP 170/64
[2016-11-22 11:26] LABS: POINT-OF-CARE METER ID UU13113781; POINT-OF-CARE USER ID ENVKC36
[2016-11-22 15:37] VITALS: BP 160/62
[2016-11-22 16:24] LABS: POINT-OF-CARE METER ID UU13113781; POINT-OF-CARE USER ID ENVKC36
[2016-11-22 20:30] VITALS: BP 184/80
[2016-11-22 21:38] LABS: POINT-OF-CARE METER ID UU13113698
[2016-11-23] VITALS (7 sets, daily range): BP systolic 146–178; BP diastolic 56–86
[2016-11-23 05:41] LABS: EOSINOPHIL (%) 2.9 % (0-5); EOSINOPHIL COUNT 0.2 K/uL (0-0.3); HEMATOCRIT 24.3 % (38.0-50.0); IMMATURE GRANULOCYTE (%) 0.8 % (0.0-0.7); IMMATURE GRANULOCYTE COUNT 0.1 K/uL; INSTRUMENT ABS NEUTROPHIL CT 4.7 K/uL; LYMPHOCYTE COUNT 0.8 K/uL (1.0-2.8); MCH 27.3 PG (29.0-34.0); MONOCYTE (%) 7.9 % (3-12); MONOCYTE COUNT 0.5 K/uL (0-0.8); NEUTROPHIL COUNT 4.7 K/uL (1.8-6.4); PLATELET COUNT 162 K/uL (156-360); RBC DIS.WIDTH-CV 15.4 % (11.8-14.6); RBC DIS.WIDTH-SD 50.4 % (39-53); RED BLOOD COUNT 2.67 M/uL (4.00-5.50); WHITE BLOOD COUNT 6.2 K/uL (4.1-10.2)
[2016-11-23 06:02] LABS: INTER. NORMALIZED RATIO 1.4
[2016-11-23 06:38] LABS: ANION GAP 4 MEQ/L (2-14); CHLORIDE 102 MEQ/L (99-109); GFR ESTIMATE (CALCULATED) 59 mL/min/; GLUCOSE 131 mg/dL (70-99); POTASSIUM 5.4 MEQ/L (3.7-5.4); SAMPLE HEMOLYSIS CHECK 0; SAMPLE ICTERIC CHECK 0; SAMPLE LIPEMIA CHECK 0; SODIUM 140 MEQ/L (136-147); UREA NITROGEN (BUN) 53 mg/dL (9-23)
[2016-11-23 21:17] LABS: POINT-OF-CARE METER ID UU13113781
[2016-11-24 04:35] VITALS: BP 158/78
[2016-11-24 05:31] LABS: EOSINOPHIL COUNT 0.2 K/uL (0-0.3); HEMATOCRIT 25.2 % (38.0-50.0); IMMATURE GRANULOCYTE (%) 0.9 % (0.0-0.7); IMMATURE GRANULOCYTE COUNT 0.1 K/uL; INSTRUMENT ABS NEUTROPHIL CT 4.2 K/uL; LYMPHOCYTE COUNT 0.8 K/uL (1.0-2.8); MCHC 31.7 G/DL (30.0-36.0); MCV 91.3 FL (86-99); MEAN PLAT.VOLUME 10.8 uM^3 (9.0-12.4); MONOCYTE (%) 7.5 % (3-12); MONOCYTE COUNT 0.4 K/uL (0-0.8); NEUTROPHIL (%) 73.4 % (45-76); NEUTROPHIL COUNT 4.2 K/uL (1.8-6.4); PLATELET COUNT 157 K/uL (156-360); RBC DIS.WIDTH-CV 15.5 % (11.8-14.6); RBC DIS.WIDTH-SD 51.1 % (39-53); RED BLOOD COUNT 2.76 M/uL (4.00-5.50); WHITE BLOOD COUNT 5.8 K/uL (4.1-10.2)
[2016-11-24 05:55] LABS: ANION GAP 6 MEQ/L (2-14); CHLORIDE 101 MEQ/L (99-109); GFR ESTIMATE (CALCULATED) > 59 mL/min/; GLUCOSE 117 mg/dL (70-99); POTASSIUM 5.1 MEQ/L (3.7-5.4); SAMPLE HEMOLYSIS CHECK 0; SAMPLE ICTERIC CHECK 0; SAMPLE LIPEMIA CHECK 0; SODIUM 138 MEQ/L (136-147); UREA NITROGEN (BUN) 46 mg/dL (9-23)
[2016-11-24 06:14] LABS: INTER. NORMALIZED RATIO 1.5; PROTHROMBIN TIME 16.7 SEC (10.2-12.9)
[2016-11-24 08:00] VITALS: BP 142/80
[2016-11-24 08:07] LABS: POINT-OF-CARE METER ID UU13113698
[2016-11-24 13:26] VITALS: BP 140/82
== END 2016-11-24 17:37 | DRG 853 ==
LOC: EME → EDBD 17:21 → EME 17:21 → 5SOUTH 21:01 → EDOF 21:01 → 4WEST 21:01 → 4EAST 21:01 → 5SOUTH 11-04 16:08 → 4WEST 11-08 13:09 → 4EAST 11-12 00:43
PROVIDERS: Emergency Medicine; Hospitalist; Internal Medicine; Internal Medicine Critical Care Medicine; Internal Medicine Nephrology; Nurse Practitioner Adult Health; Physician Assistant; Surgery
PROC: 5A09357 Assistance with Respiratory Ventilation, Less than 24 Consecutive Hours, Continuous Positive Airway Pressure (ICD-10-PCS; principal; 2016-11-01)
PROC: 5A1D60Z (ICD-10-PCS; 2016-11-03)
PROC: 30233N1 Transfusion of Nonautologous Red Blood Cells into Peripheral Vein, Percutaneous Approach (ICD-10-PCS; 2016-11-03)
PROC: 02HV33Z Insertion of Infusion Device into Superior Vena Cava, Percutaneous Approach (ICD-10-PCS; 2016-11-03)
PROC: 5A1945Z Respiratory Ventilation, 24-96 Consecutive Hours (ICD-10-PCS; 2016-11-08)
PROC: 0BH17EZ Insertion of Endotracheal Airway into Trachea, Via Natural or Artificial Opening (ICD-10-PCS; 2016-11-08)
PROC: 30233K1 Transfusion of Nonautologous Frozen Plasma into Peripheral Vein, Percutaneous Approach (ICD-10-PCS; 2016-11-17)
PROC: 0Y6H0Z1 Detachment at Right Lower Leg, High, Open Approach (ICD-10-PCS; 2016-11-18)
DX: A41.9 Sepsis, unspecified organism (principal); N18.6 End stage renal disease; N17.0 Acute kidney failure with tubular necrosis; E43 Unspecified severe protein-calorie malnutrition; G93.40 Encephalopathy, unspecified; J96.22 Acute and chronic respiratory failure with hypercapnia; J96.21 Acute and chronic respiratory failure with hypoxia; E66.2 Morbid (severe) obesity with alveolar hypoventilation; E11.52 Type 2 diabetes mellitus with diabetic peripheral angiopathy with gangrene; D62 Acute posthemorrhagic anemia; Z68.44 Body mass index [BMI] 60.0-69.9, adult; E87.1 Hypo-osmolality and hyponatremia; E87.2 Acidosis; I50.42 Chronic combined systolic (congestive) and diastolic (congestive) heart failure; L97.211 Non-pressure chronic ulcer of right calf limited to breakdown of skin; L03.311 Cellulitis of abdominal wall; L03.116 Cellulitis of left lower limb; L03.115 Cellulitis of right lower limb; I70.261 Atherosclerosis of native arteries of extremities with gangrene, right leg; J44.1 Chronic obstructive pulmonary disease with (acute) exacerbation; N04.8 Nephrotic syndrome with other morphologic changes; I13.2 Hypertensive heart and chronic kidney disease with heart failure and with stage 5 chronic kidney disease, or end stage renal disease; F33.9 Major depressive disorder, recurrent, unspecified; Z99.2 Dependence on renal dialysis; R65.20 Severe sepsis without septic shock; Z99.81 Dependence on supplemental oxygen; D50.9 Iron deficiency anemia, unspecified; E11.21 Type 2 diabetes mellitus with diabetic nephropathy; E11.22 Type 2 diabetes mellitus with diabetic chronic kidney disease; E11.42 Type 2 diabetes mellitus with diabetic polyneuropathy; E11.621 Type 2 diabetes mellitus with foot ulcer; E11.65 Type 2 diabetes mellitus with hyperglycemia; E55.9 Vitamin D deficiency, unspecified; E78.5 Hyperlipidemia, unspecified; E83.39 Other disorders of phosphorus metabolism; E83.51 Hypocalcemia; E86.0 Dehydration; G54.6 Phantom limb syndrome with pain; G89.29 Other chronic pain; L89.899 Pressure ulcer of other site, unspecified stage; L89.611 Pressure ulcer of right heel, stage 1; L97.519 Non-pressure chronic ulcer of other part of right foot with unspecified severity; I89.0 Lymphedema, not elsewhere classified; I87.8 Other specified disorders of veins; I48.0 Paroxysmal atrial fibrillation; I48.2 Chronic atrial fibrillation; K21.9 Gastro-esophageal reflux disease without esophagitis; M21.372 Foot drop, left foot; I25.10 Atherosclerotic heart disease of native coronary artery without angina pectoris; G40.909 Epilepsy, unspecified, not intractable, without status epilepticus; E87.5 Hyperkalemia; L89.620 Pressure ulcer of left heel, unstageable; M21.371 Foot drop, right foot; L97.529 Non-pressure chronic ulcer of other part of left foot with unspecified severity; T50.2X5A Adverse effect of carbonic-anhydrase inhibitors, benzothiadiazides and other diuretics, initial encounter; I16.0 Hypertensive urgency; Z95.1 Presence of aortocoronary bypass graft; Z91.19 Patient's noncompliance with other medical treatment and regimen; Z87.891 Personal history of nicotine dependence; Z78.1 Physical restraint status; Z87.441 Personal history of nephrotic syndrome; Z87.11 Personal history of peptic ulcer disease; Z86.73 Personal history of transient ischemic attack (TIA), and cerebral infarction without residual deficits; Z83.3 Family history of diabetes mellitus; Z82.49 Family history of ischemic heart disease and other diseases of the circulatory system; Z79.4 Long term (current) use of insulin; Z79.01 Long term (current) use of anticoagulants; I25.2 Old myocardial infarction; Z89.422 Acquired absence of other left toe(s)
CPT/HCPCS: 36600; 71010; 74176; 80048; 80048 91; 80053; 80069; 80202; 81003; 82040; 82272; 82306; 82330; 82436; 82550; 82565; 82570; 82803; 82948; 83540; 83605; 83735; 83930; 83935; 84132 91; 84133; 84156; 84300; 84466; 84484; 84540; 84550; 85014; 85018; 85025; 85027; 85610; 85651; 85730; 86021 90; 86140; 86160; 86334; 86335; 86706; 86803; 86900; 86901; 86920; 87040; 87070; 87075; 87086; 87205; 87340; 87493; 87641; 88307; 89190; 93005; 93971; 94002; 94003; 94640; 94640 76; 94660; 94760; 94799; 97530 GO; 97530 GP; 99202; 99281; 99285; A6260; C1753; C1769; C1788; J0360; J0610; J0690; J1644; J1756; J1815; J1940; J2250; J2310; J2405; J2543; J2704; J2920; J2930; J3010; J3370; J7030; J7050; J7512; P9016; P9017; P9047; S0028

== ENCOUNTER 2017-01-02 19:11 | Emergency (ER) | payer OTHER, MEDICARE ==
[~2017-01-02] VITALS: Ht 182.9 cm; Wt 154.2 kg
[~2017-01-02 19:11] MED LIST changes: +ACIDOPHILUS1 EAC4 PO; +CIPRO500 MG PO; +DOXYCYCLINE HY100 M3 PO
[2017-01-02 21:46] VITALS: BP 143/60
== END 2017-01-02 21:55 ==
LOC: EME → EDBD 19:11 → EME 19:11
DX: H10.212 Acute toxic conjunctivitis, left eye (principal); T49.6X1A Poisoning by otorhinolaryngological drugs and preparations, accidental (unintentional), initial encounter; Y92.129 Unspecified place in nursing home as the place of occurrence of the external cause; I10 Essential (primary) hypertension; I25.2 Old myocardial infarction; Z89.412 Acquired absence of left great toe; Z86.73 Personal history of transient ischemic attack (TIA), and cerebral infarction without residual deficits; Z95.1 Presence of aortocoronary bypass graft; K21.9 Gastro-esophageal reflux disease without esophagitis; Z79.4 Long term (current) use of insulin; Z87.891 Personal history of nicotine dependence; Z79.82 Long term (current) use of aspirin; Z79.891 Long term (current) use of opiate analgesic
CPT/HCPCS: 99281; 99284

== ENCOUNTER 2017-03-09 02:37 | Inpatient (IN) | payer OTHER, MEDICARE ==
[~2017-03-09] VITALS: Ht 182.9 cm; Wt 167.5 kg
[2017-03-09 03:35] LABS: EOSINOPHIL (%) 1.9 % (0-5); EOSINOPHIL COUNT 0.2 K/uL (0-0.3); HEMATOCRIT 30.8 % (38.0-50.0); IMMATURE GRANULOCYTE (%) 0.2 % (0.0-0.7); INSTRUMENT ABS NEUTROPHIL CT 7.4 K/uL; LYMPHOCYTE COUNT 0.9 K/uL (1.0-2.8); MCH 27.5 PG (29.0-34.0); MCHC 31.2 G/DL (30.0-36.0); MCV 88.3 FL (86-99); MEAN PLAT.VOLUME 10.2 uM^3 (9.0-12.4); MONOCYTE (%) 5.9 % (3-12); MONOCYTE COUNT 0.5 K/uL (0-0.8); NEUTROPHIL (%) 81.8 % (45-76); NEUTROPHIL COUNT 7.4 K/uL (1.8-6.4); PLATELET COUNT 144 K/uL (156-360); RBC DIS.WIDTH-CV 14.8 % (11.8-14.6); RBC DIS.WIDTH-SD 48.4 % (39-53); RED BLOOD COUNT 3.49 M/uL (4.00-5.50)
[2017-03-09 03:55] LABS: TROP-I INTERPRETATION NEGATIVE; TROPONIN-I 0.02 ng/mL (0.0-0.30)
[2017-03-09 03:59] LABS: CHLORIDE 90 mEq/L (99-109); POTASSIUM 4.8 mEq/L (3.7-5.4); SODIUM 138 mEq/L (136-147)
[2017-03-09 04:01] LABS: GLUCOSE 129 mg/dL (70-99)
[2017-03-09 04:02] LABS: ANION GAP 10 MEQ/L (2-14)
[2017-03-09 04:05] LABS: GFR ESTIMATE (CALCULATED) 58 mL/min/
[2017-03-09 04:06] LABS: UREA NITROGEN (BUN) 32 mg/dL (9-23)
[2017-03-09 05:15] LABS: ADD MIUA? YES; BILIRUBIN NEGATIVE; BLOOD SMALL; COLOR AMBER ((YELLOW)); GLUCOSE (STRIP) 50; KETONES NEGATIVE; LEUKOCYTES SMALL; NITRITE NEGATIVE; PROTEIN (STRIP) >=500; SPECIFIC GRAVITY 1.019 (1.000-1.030); UROBILINOGEN 0.2 MG/DL (0.2-1.0)
[2017-03-09 05:34] LABS: AMORPHOUS URATES CRYSTALS 3+; BACTERIA 3+ /HPF; CASTS NONE SEEN /LPF; CRYSTALS PRESENT; EPITHELIAL CELLS RARE /HPF; MUCUS NONE SEEN /LPF; RED BLOOD CELLS 0-5 /HPF (0-5); UCUL ADDED? YES
[2017-03-09] MEDS ORDERED: BUMEX1 MG PO (08:34)
[2017-03-09] MEDS ORDERED: ERGOCALCIF50000 UNIT PO (08:41)
[2017-03-09] MEDS ORDERED: ALLERGY RELIE15.8 ML BOTH NARES (08:46)
[2017-03-09] MEDS ORDERED: PROCRIT10000 UNI1 IV (08:47)
[2017-03-09] MEDS ORDERED: SENNA-S TABLET1 EACH PO (08:48)
[2017-03-09] MEDS ORDERED: ASCORBIC ACID250 MG PO (08:50)
[2017-03-09] MEDS ORDERED: CARVEDILOL6.25 MG PO (08:51)
[2017-03-09] MEDS ORDERED: HUMALOG100 UNIT/2 SC ×2 (08:53→14:27)
[2017-03-09] MEDS ORDERED: LEVEMIR100 UNIT/2 SC (08:54)
[2017-03-09] MEDS ORDERED: ZYVOX600 MG PO (09:00)
[2017-03-09 09:02] VITALS: BP 138/64
[2017-03-09] MEDS ORDERED: DUONEB 2.5-0.5 M3 ML AEROSOL ×2 (09:02→09:12)
[2017-03-09] MEDS ORDERED: NEURONTIN300 MG PO (09:03)
[2017-03-09] MEDS ORDERED: IRON325 M1 PO (09:03)
[2017-03-09] MEDS ORDERED: GLUCOSE GEL38 GM PO (09:07)
[2017-03-09] MEDS ORDERED: MECLIZINE HCL12.5 M1 PO (09:08)
[2017-03-09] MEDS ORDERED: MIRALAX17 GM PO (09:08)
[2017-03-09] MEDS ORDERED: TYLENOL ARTHRI650 MG PO (09:09)
[2017-03-09 09:27] LABS: POINT-OF-CARE METER ID UU14188625
[2017-03-09 12:28] LABS: TROP-I INTERPRETATION NEGATIVE; TROPONIN-I 0.03 ng/mL (0.0-0.30)
[2017-03-09] MEDS ORDERED: PERCOCET 10/1 TABLET PO (14:25)
[2017-03-09] MEDS ORDERED: COZAAR25 MG PO (14:28)
[2017-03-09] MEDS ORDERED: COUMADIN1 MG PO (14:30)
[2017-03-09 15:27] LABS: INTER. NORMALIZED RATIO 1.4; PROTHROMBIN TIME 15.7 SEC (10.2-12.9)
[2017-03-09 16:00] VITALS: BP 145/67
[2017-03-09 16:57] LABS: POINT-OF-CARE METER ID UU14188625
[2017-03-09 18:03] LABS: TROP-I INTERPRETATION NEGATIVE; TROPONIN-I 0.03 ng/mL (0.0-0.30)
[2017-03-09 19:16] VITALS: BP 139/71
[2017-03-09 21:50] LABS: POINT-OF-CARE METER ID UU13113717
[2017-03-09 23:53] VITALS: BP 108/46
[2017-03-10 03:38] VITALS: BP 116/77
[2017-03-10 06:23] LABS: HEMATOCRIT 28.5 % (38.0-50.0); MCH 28.2 PG (29.0-34.0); MCHC 30.9 G/DL (30.0-36.0); MCV 91.3 FL (86-99); PLATELET COUNT 119 K/uL (156-360); RBC DIS.WIDTH-CV 15.3 % (11.8-14.6); RBC DIS.WIDTH-SD 51.6 % (39-53); RED BLOOD COUNT 3.12 M/uL (4.00-5.50); WHITE BLOOD COUNT 5.1 K/uL (4.1-10.2)
[2017-03-10 06:35] LABS: INTER. NORMALIZED RATIO 1.4; PROTHROMBIN TIME 16.1 SEC (10.2-12.9)
[2017-03-10 06:45] LABS: ANION GAP 5 MEQ/L (2-14); CHLORIDE 93 MEQ/L (99-109); GFR ESTIMATE (CALCULATED) 35 mL/min/; GLUCOSE 114 mg/dL (70-99); POTASSIUM 4.7 MEQ/L (3.7-5.4); SAMPLE HEMOLYSIS CHECK 0; SAMPLE ICTERIC CHECK 0; SAMPLE LIPEMIA CHECK 0; SODIUM 138 MEQ/L (136-147); UREA NITROGEN (BUN) 43 mg/dL (9-23)
[2017-03-10 07:29] LABS: POINT-OF-CARE METER ID UU14174225
[2017-03-10 08:21] VITALS: BP 130/65
[2017-03-10 12:29] LABS: POINT-OF-CARE METER ID UU14188625
[2017-03-10 17:33] VITALS: BP 132/66
[2017-03-10 17:35] LABS: POINT-OF-CARE METER ID UU13113717
[2017-03-10 18:38] LABS: BICARBONATE 42.2 mEq/L (22-26); CARBOXY HGB 2.5 % (0-5); COMMENTS - BLOOD GASES A+C+; DEVICE NC; METHEMOGLOBIN 1.2 % (0-1.5); O2 FLOW 3 L/MIN; PCO2 82 mm Hg (35-45); PO2 72 mm Hg (80-100); SITE RR; pH 7.32 (7.35-7.45)
[2017-03-10 19:04] VITALS: BP 119/56
[2017-03-10 21:16] LABS: POINT-OF-CARE METER ID UU14188625
[2017-03-10 22:27] VITALS: BP 153/69
[2017-03-10 22:47] LABS: POINT-OF-CARE METER ID UU13113717
[2017-03-11 06:19] LABS: MCH 27.6 PG (29.0-34.0); MCHC 30.7 G/DL (30.0-36.0); MCV 89.8 FL (86-99); PLATELET COUNT 129 K/uL (156-360); RBC DIS.WIDTH-CV 14.8 % (11.8-14.6); RBC DIS.WIDTH-SD 48.3 % (39-53); RED BLOOD COUNT 3.23 M/uL (4.00-5.50); WHITE BLOOD COUNT 5.3 K/uL (4.1-10.2)
[2017-03-11 06:26] LABS: INTER. NORMALIZED RATIO 1.5; PROTHROMBIN TIME 17.3 SEC (10.2-12.9)
[2017-03-11 07:08] LABS: ANION GAP 6 MEQ/L (2-14); CHLORIDE 97 MEQ/L (99-109); POTASSIUM 5.1 MEQ/L (3.7-5.4); SAMPLE HEMOLYSIS CHECK 0; SAMPLE ICTERIC CHECK 0; SAMPLE LIPEMIA CHECK 0; SODIUM 140 MEQ/L (136-147)
[2017-03-11 07:57] LABS: POINT-OF-CARE METER ID UU14188625
[2017-03-11 08:15] VITALS: BP 154/73
[2017-03-11 08:43] LABS: FERRITIN 331 NG/ML (22-322); GFR ESTIMATE (CALCULATED) 40 mL/min/; IRON 34 MCG/DL (35-150); UREA NITROGEN (BUN) 46 mg/dL (9-23); URIC ACID 9.1 mg/dL (3.1-9.2)
[2017-03-11 08:44] LABS: GLUCOSE 190 mg/dL (70-99)
[2017-03-11 12:16] LABS: POINT-OF-CARE METER ID UU14188625
[2017-03-11 16:06] VITALS: BP 145/75
[2017-03-11 17:33] LABS: POINT-OF-CARE METER ID UU14188625
[2017-03-11 21:36] LABS: POINT-OF-CARE METER ID UU14188625
[2017-03-11 22:00] LABS: POINT-OF-CARE METER ID UU14188625
[2017-03-11 22:28] LABS: POINT-OF-CARE METER ID UU14188625
[2017-03-11 23:24] VITALS: BP 134/60
[2017-03-12 00:19] LABS: POINT-OF-CARE METER ID UU14188625
[2017-03-12 03:16] LABS: POINT-OF-CARE METER ID UU14188625
[2017-03-12 07:39] LABS: HEMATOCRIT 29.5 % (38.0-50.0); MCH 28.3 PG (29.0-34.0); MCHC 30.8 G/DL (30.0-36.0); MCV 91.6 FL (86-99); MEAN PLAT.VOLUME 10.8 uM^3 (9.0-12.4); PLATELET COUNT 138 K/uL (156-360); RBC DIS.WIDTH-CV 14.7 % (11.8-14.6); RED BLOOD COUNT 3.22 M/uL (4.00-5.50); WHITE BLOOD COUNT 6.2 K/uL (4.1-10.2)
[2017-03-12 08:04] LABS: POINT-OF-CARE METER ID UU13113717
[2017-03-12 08:04] LABS: ANION GAP 5 MEQ/L (2-14); CHLORIDE 99 MEQ/L (99-109); GFR ESTIMATE (CALCULATED) > 59 mL/min/; POTASSIUM 5.3 MEQ/L (3.7-5.4); SAMPLE HEMOLYSIS CHECK 0; SAMPLE ICTERIC CHECK 0; SAMPLE LIPEMIA CHECK 0; SODIUM 141 MEQ/L (136-147); UREA NITROGEN (BUN) 44 mg/dL (9-23)
[2017-03-12 08:09] LABS: GLUCOSE 111 mg/dL (70-99)
[2017-03-12 08:28] VITALS: BP 147/68
[2017-03-12 08:56] LABS: INTER. NORMALIZED RATIO 1.8; PROTHROMBIN TIME 20.7 SEC (10.2-12.9)
[2017-03-12 11:33] LABS: BICARBONATE 40.9 mEq/L (22-26); METHEMOGLOBIN 1.5 % (0-1.5); pH 7.35 (7.35-7.45)
[2017-03-12 11:34] LABS: COMMENTS - BLOOD GASES +C; CONTINUOUS POS AIRWAY PRESSURE 6 cm H2O; DEVICE BIPAP BLEED IN; MODE BIPAP; O2 FLOW 15 L/MIN; PCO2 74 mm Hg (35-45); PO2 51 mm Hg (80-100); PRES. SUPPORT 16 CM/H2O; SITE LR +A; TOTAL RESP RATE 12 resp/min
[2017-03-12 12:17] LABS: POINT-OF-CARE METER ID UU14188625
[2017-03-12 17:16] LABS: POINT-OF-CARE METER ID UU13113717
[2017-03-12 17:19] VITALS: BP 145/70
[2017-03-12 21:00] LABS: POINT-OF-CARE METER ID UU14174225
[2017-03-12 23:06] VITALS: BP 157/75
[2017-03-13] VITALS (17 sets, daily range): BP systolic 0–217; BP diastolic 0–99
[2017-03-13 07:13] LABS: INTER. NORMALIZED RATIO 2.6; PROTHROMBIN TIME 29.7 SEC (10.2-12.9)
[2017-03-13 07:15] LABS: HEMATOCRIT 31.1 % (38.0-50.0); MCHC 31.2 G/DL (30.0-36.0); MCV 89.9 FL (86-99); MEAN PLAT.VOLUME 11.1 uM^3 (9.0-12.4); PLATELET COUNT 129 K/uL (156-360); RBC DIS.WIDTH-CV 14.3 % (11.8-14.6); RBC DIS.WIDTH-SD 46.7 % (39-53); RED BLOOD COUNT 3.46 M/uL (4.00-5.50)
[2017-03-13 07:16] LABS: ANION GAP 8 MEQ/L (2-14); CHLORIDE 100 MEQ/L (99-109); POTASSIUM 5.3 MEQ/L (3.7-5.4); SAMPLE HEMOLYSIS CHECK 0; SAMPLE ICTERIC CHECK 0; SAMPLE LIPEMIA CHECK 0; SODIUM 141 MEQ/L (136-147)
[2017-03-13 07:20] LABS: POINT-OF-CARE METER ID UU14188625
[2017-03-13 07:26] LABS: GFR ESTIMATE (CALCULATED) > 59 mL/min/; UREA NITROGEN (BUN) 37 mg/dL (9-23)
[2017-03-13 07:27] LABS: GLUCOSE 189 mg/dL (70-99)
[2017-03-13 07:40] LABS: Estimated Average Glucose 183 mg/dL (70-123)
[2017-03-13 11:07] LABS: BASE EXCESS 12.3 mEq/L (-3 to +3); BICARBONATE 40.6 mEq/L (22-26); CARBOXY HGB 2.3 % (0-5); METHEMOGLOBIN 1.3 % (0-1.5); PCO2 77 mm Hg (35-45); PO2 50 mm Hg (80-100); pH 7.33 (7.35-7.45)
[2017-03-13 11:08] LABS: COMMENTS - BLOOD GASES C+A+; DEVICE BIPAP; O2 FLOW 15 L/MIN; SITE RR; TOTAL RESP RATE 20 resp/min
[2017-03-13 13:31] LABS: METH RESISTANT S AUREUS PCR POSITIVE (NEGATIVE)
[2017-03-13 13:39] LABS: PROBE CHECK PASS
[2017-03-13 14:36] LABS: POINT-OF-CARE METER ID UU13113803
[2017-03-13 17:15] LABS: POINT-OF-CARE METER ID UU13113803
[2017-03-13 19:39] LABS: BASE EXCESS 15.7 mEq/L (-3 to +3); BICARBONATE 41.5 mEq/L (22-26); CARBOXY HGB 1.8 % (0-5); COMMENTS - BLOOD GASES C+; DEVICE MASK VENT; FI02 30 %; METHEMOGLOBIN 1.3 % (0-1.5); MODE SPONT; PCO2 57 mm Hg (35-45); PEEP 5 CM/H20; PO2 60 mm Hg (80-100); PRES. SUPPORT 10 CM/H2O; SITE RR; TOTAL RESP RATE 17 resp/min; pH 7.47 (7.35-7.45)
[2017-03-13 23:16] LABS: POINT-OF-CARE METER ID UU14208751
[2017-03-14] VITALS (21 sets, daily range): BP systolic 112–206; BP diastolic 55–115
[2017-03-14 05:33] LABS: POINT-OF-CARE METER ID UU14314082
[2017-03-14 05:53] LABS: HEMATOCRIT 32.6 % (38.0-50.0); MCH 26.7 PG (29.0-34.0); MCHC 30.1 G/DL (30.0-36.0); MCV 88.8 FL (86-99); MEAN PLAT.VOLUME 10.3 uM^3 (9.0-12.4); RBC DIS.WIDTH-CV 14.2 % (11.8-14.6); RBC DIS.WIDTH-SD 46.2 % (39-53); RED BLOOD COUNT 3.67 M/uL (4.00-5.50); WHITE BLOOD COUNT 6.5 K/uL (4.1-10.2)
[2017-03-14 06:17] LABS: ANION GAP 9 MEQ/L (2-14); CHLORIDE 100 MEQ/L (99-109); GFR ESTIMATE (CALCULATED) > 59 mL/min/; GLUCOSE 213 mg/dL (70-99); POTASSIUM 4.6 MEQ/L (3.7-5.4); SAMPLE HEMOLYSIS CHECK 0; SAMPLE ICTERIC CHECK 0; SAMPLE LIPEMIA CHECK 0; SODIUM 143 MEQ/L (136-147); UREA NITROGEN (BUN) 29 mg/dL (9-23)
[2017-03-14 06:21] LABS: PLATELET COUNT 184 K/uL (156-360)
[2017-03-14 06:29] LABS: INTER. NORMALIZED RATIO 3.6; PROTHROMBIN TIME 41.6 SEC (10.2-12.9)
[2017-03-14 12:34] LABS: POINT-OF-CARE METER ID UU14314082
[2017-03-14 14:26] LABS: POINT-OF-CARE METER ID UU14314082
[2017-03-14 18:52] LABS: POINT-OF-CARE METER ID UU14314082
[2017-03-14 21:25] LABS: POINT-OF-CARE METER ID UU14314082
[2017-03-14 22:30] LABS: POINT-OF-CARE METER ID UU14314082
[2017-03-15] VITALS (14 sets, daily range): BP systolic 111–193; BP diastolic 51–99
[2017-03-15 05:29] LABS: EOSINOPHIL (%) 0.5 % (0-5); HEMATOCRIT 32.3 % (38.0-50.0); IMMATURE GRANULOCYTE (%) 0.9 % (0.0-0.7); IMMATURE GRANULOCYTE COUNT 0.1 K/uL; INSTRUMENT ABS NEUTROPHIL CT 6.6 K/uL; LYMPHOCYTE COUNT 0.6 K/uL (1.0-2.8); MCH 26.6 PG (29.0-34.0); MCV 88.7 FL (86-99); MEAN PLAT.VOLUME 10.2 uM^3 (9.0-12.4); MONOCYTE (%) 2.1 % (3-12); MONOCYTE COUNT 0.2 K/uL (0-0.8); NEUTROPHIL (%) 88.7 % (45-76); NEUTROPHIL COUNT 6.6 K/uL (1.8-6.4); PLATELET COUNT 233 K/uL (156-360); RBC DIS.WIDTH-CV 14.5 % (11.8-14.6); RBC DIS.WIDTH-SD 46.8 % (39-53); RED BLOOD COUNT 3.64 M/uL (4.00-5.50); WHITE BLOOD COUNT 7.5 K/uL (4.1-10.2)
[2017-03-15 05:37] LABS: INTER. NORMALIZED RATIO 4.9
[2017-03-15 06:01] LABS: ANION GAP 8 MEQ/L (2-14); CHLORIDE 99 MEQ/L (99-109); GFR ESTIMATE (CALCULATED) > 59 mL/min/; GLUCOSE 250 mg/dL (70-99); SAMPLE HEMOLYSIS CHECK 0; SAMPLE ICTERIC CHECK 0; SAMPLE LIPEMIA CHECK 0; SODIUM 143 MEQ/L (136-147); UREA NITROGEN (BUN) 28 mg/dL (9-23)
[2017-03-15 08:40] LABS: POINT-OF-CARE METER ID UU14208751
[2017-03-15 12:46] LABS: POINT-OF-CARE METER ID UU14174217
[2017-03-15 16:23] LABS: POINT-OF-CARE METER ID UU14174217
[2017-03-15 22:13] LABS: POINT-OF-CARE METER ID UU14174216
[2017-03-16] VITALS (7 sets, daily range): BP systolic 149–214; BP diastolic 74–104
[2017-03-16 05:06] LABS: EOSINOPHIL (%) 0.3 % (0-5); HEMATOCRIT 31.2 % (38.0-50.0); IMMATURE GRANULOCYTE (%) 1.2 % (0.0-0.7); IMMATURE GRANULOCYTE COUNT 0.1 K/uL; INSTRUMENT ABS NEUTROPHIL CT 5.8 K/uL; INTER. NORMALIZED RATIO 1.8; LYMPHOCYTE COUNT 0.6 K/uL (1.0-2.8); MCH 27.1 PG (29.0-34.0); MCHC 30.8 G/DL (30.0-36.0); MCV 88.1 FL (86-99); MEAN PLAT.VOLUME 10.6 uM^3 (9.0-12.4); MONOCYTE (%) 5.1 % (3-12); MONOCYTE COUNT 0.4 K/uL (0-0.8); NEUTROPHIL (%) 84.7 % (45-76); NEUTROPHIL COUNT 5.8 K/uL (1.8-6.4); PLATELET COUNT 203 K/uL (156-360); PROTHROMBIN TIME 20.9 SEC (10.2-12.9); RBC DIS.WIDTH-CV 14.3 % (11.8-14.6); RBC DIS.WIDTH-SD 45.8 % (39-53); RED BLOOD COUNT 3.54 M/uL (4.00-5.50); WHITE BLOOD COUNT 6.9 K/uL (4.1-10.2)
[2017-03-16 05:16] LABS: CHLORIDE 97 mEq/L (99-109); POTASSIUM 4.7 mEq/L (3.7-5.4); SODIUM 137 mEq/L (136-147)
[2017-03-16 05:19] LABS: ANION GAP 6 MEQ/L (2-14)
[2017-03-16 05:22] LABS: GFR ESTIMATE (CALCULATED) > 59 mL/min/
[2017-03-16 05:23] LABS: UREA NITROGEN (BUN) 32 mg/dL (9-23)
[2017-03-16 05:24] LABS: GLUCOSE 376 mg/dL (70-99)
[2017-03-16 08:05] LABS: POINT-OF-CARE METER ID UU14174216
[2017-03-16 11:16] LABS: POINT-OF-CARE METER ID UU13113698
[2017-03-16 16:57] LABS: POINT-OF-CARE METER ID UU13113698; POINT-OF-CARE USER ID ENVKC36
[2017-03-17 03:04] LABS: INTER. NORMALIZED RATIO 1.3; PROTHROMBIN TIME 14.7 SEC (10.2-12.9)
[2017-03-17 03:07] LABS: CHLORIDE 93 mEq/L (99-109); POTASSIUM 5.2 mEq/L (3.7-5.4); SODIUM 136 mEq/L (136-147)
[2017-03-17 03:10] LABS: ANION GAP 10 MEQ/L (2-14)
[2017-03-17 03:13] LABS: GFR ESTIMATE (CALCULATED) > 59 mL/min/
[2017-03-17 03:14] LABS: GLUCOSE 453 mg/dL (70-99); UREA NITROGEN (BUN) 35 mg/dL (9-23)
[2017-03-17 03:20] VITALS: BP 130/57
[2017-03-17 05:48] LABS: POINT-OF-CARE METER ID UU14174216
[2017-03-17 07:39] VITALS: BP 152/86
[2017-03-17 08:17] LABS: POINT-OF-CARE METER ID UU14174216
[2017-03-17 10:11] LABS: POINT-OF-CARE METER ID UU13113675
[2017-03-17 11:16] LABS: POINT-OF-CARE METER ID UU13113675
[2017-03-17 11:54] VITALS: BP 157/82
[2017-03-17 12:06] LABS: POINT-OF-CARE METER ID UU13113781
[2017-03-17 15:29] LABS: POINT-OF-CARE METER ID UU14174216
[2017-03-17 15:30] LABS: POINT-OF-CARE METER ID UU13113698
[2017-03-17 15:30] LABS: POINT-OF-CARE METER ID UU14314088
[2017-03-17 16:09] LABS: POINT-OF-CARE METER ID UU13113781
[2017-03-17 17:44] VITALS: BP 206/92
[2017-03-17 19:30] VITALS: BP 162/80
[2017-03-17 21:20] LABS: POINT-OF-CARE METER ID UU13113698
[2017-03-18 00:04] VITALS: BP 156/82
[2017-03-18 05:00] VITALS: BP 162/84
[2017-03-18 05:42] LABS: EOSINOPHIL (%) 0.3 % (0-5); HEMATOCRIT 29.8 % (38.0-50.0); IMMATURE GRANULOCYTE (%) 3.2 % (0.0-0.7); IMMATURE GRANULOCYTE COUNT 0.2 K/uL; INSTRUMENT ABS NEUTROPHIL CT 5.1 K/uL; LYMPHOCYTE COUNT 0.7 K/uL (1.0-2.8); MCH 27.5 PG (29.0-34.0); MCHC 31.5 G/DL (30.0-36.0); MCV 87.1 FL (86-99); MEAN PLAT.VOLUME 10.1 uM^3 (9.0-12.4); MONOCYTE (%) 6.5 % (3-12); MONOCYTE COUNT 0.4 K/uL (0-0.8); NEUTROPHIL COUNT 5.1 K/uL (1.8-6.4); PLATELET COUNT 198 K/uL (156-360); RBC DIS.WIDTH-CV 14.4 % (11.8-14.6); RBC DIS.WIDTH-SD 45.4 % (39-53); RED BLOOD COUNT 3.42 M/uL (4.00-5.50); WHITE BLOOD COUNT 6.5 K/uL (4.1-10.2)
[2017-03-18 05:54] LABS: INTER. NORMALIZED RATIO 1.5; PROTHROMBIN TIME 17.5 SEC (10.2-12.9)
[2017-03-18 06:09] LABS: ANION GAP 5 MEQ/L (2-14); CHLORIDE 92 MEQ/L (99-109); GFR ESTIMATE (CALCULATED) > 59 mL/min/; GLUCOSE 360 mg/dL (70-99); POTASSIUM 4.9 MEQ/L (3.7-5.4); SAMPLE HEMOLYSIS CHECK 0; SAMPLE ICTERIC CHECK 0; SAMPLE LIPEMIA CHECK 0; SODIUM 131 MEQ/L (136-147); UREA NITROGEN (BUN) 37 mg/dL (9-23)
[2017-03-18 08:11] LABS: POINT-OF-CARE METER ID UU14314088; POINT-OF-CARE USER ID NUTSLF44
[2017-03-18 08:50] VITALS: BP 162/68
[2017-03-18 11:33] VITALS: BP 190/82
[2017-03-18 12:01] LABS: POINT-OF-CARE METER ID UU14314088; POINT-OF-CARE USER ID NUTSLF44
[2017-03-18 19:42] VITALS: BP 178/82
[2017-03-19] VITALS (7 sets, daily range): BP systolic 160–186; BP diastolic 69–91
[2017-03-19 03:04] LABS: POINT-OF-CARE METER ID UU13113781
[2017-03-19 06:22] LABS: INTER. NORMALIZED RATIO 1.9; PROTHROMBIN TIME 21.4 SEC (10.2-12.9)
[2017-03-19 07:01] LABS: ANION GAP 7 MEQ/L (2-14); CHLORIDE 93 MEQ/L (99-109); GFR ESTIMATE (CALCULATED) > 59 mL/min/; GLUCOSE 363 mg/dL (70-99); MAGNESIUM 2.1 mg/dl (1.3-2.7); POTASSIUM 5.2 MEQ/L (3.7-5.4); SAMPLE HEMOLYSIS CHECK 0; SAMPLE ICTERIC CHECK 0; SAMPLE LIPEMIA CHECK 0; SODIUM 134 MEQ/L (136-147); UREA NITROGEN (BUN) 48 mg/dL (9-23)
[2017-03-19 08:08] LABS: POINT-OF-CARE METER ID UU13113698; POINT-OF-CARE USER ID ADMMNS
[2017-03-19 12:23] LABS: GLUCOSE 434 mg/dL (70-99)
[2017-03-19 22:34] LABS: POINT-OF-CARE METER ID UU13113698
[2017-03-19 22:35] LABS: POINT-OF-CARE METER ID UU14314088
[2017-03-19 22:37] LABS: POINT-OF-CARE METER ID UU13113698
[2017-03-19 22:39] LABS: POINT-OF-CARE METER ID UU14314088; POINT-OF-CARE USER ID NUTSLF44
[2017-03-19 22:39] LABS: POINT-OF-CARE METER ID UU13113698
[2017-03-20] VITALS (8 sets, daily range): BP systolic 150–194; BP diastolic 62–90
[2017-03-20 05:40] LABS: INTER. NORMALIZED RATIO 2.2; PROTHROMBIN TIME 24.9 SEC (10.2-12.9)
[2017-03-20 07:48] LABS: ANION GAP 3 MEQ/L (2-14); CHLORIDE 95 MEQ/L (99-109); POTASSIUM 4.9 MEQ/L (3.7-5.4); SAMPLE HEMOLYSIS CHECK 0; SAMPLE ICTERIC CHECK 0; SAMPLE LIPEMIA CHECK 0; SODIUM 135 MEQ/L (136-147)
[2017-03-20 07:54] LABS: GFR ESTIMATE (CALCULATED) 49 mL/min/; GLUCOSE 293 mg/dL (70-99); UREA NITROGEN (BUN) 56 mg/dL (9-23)
[2017-03-20 08:13] LABS: POINT-OF-CARE METER ID UU13113781
[2017-03-20 11:46] LABS: POINT-OF-CARE METER ID UU13113781
[2017-03-20 16:34] LABS: POINT-OF-CARE METER ID UU14174216
[2017-03-20 21:29] LABS: POINT-OF-CARE METER ID UU14188625
[2017-03-21 03:25] VITALS: BP 151/69
[2017-03-21 06:35] LABS: EOSINOPHIL (%) 3.1 % (0-5); EOSINOPHIL COUNT 0.2 K/uL (0-0.3); IMMATURE GRANULOCYTE COUNT 0.1 K/uL; INSTRUMENT ABS NEUTROPHIL CT 5.2 K/uL; LYMPHOCYTE COUNT 1.2 K/uL (1.0-2.8); MCH 27.6 PG (29.0-34.0); MCHC 30.3 G/DL (30.0-36.0); MCV 91.2 FL (86-99); MONOCYTE (%) 4.4 % (3-12); MONOCYTE COUNT 0.3 K/uL (0-0.8); NEUTROPHIL (%) 73.8 % (45-76); NEUTROPHIL COUNT 5.2 K/uL (1.8-6.4); PLATELET COUNT 177 K/uL (156-360); RBC DIS.WIDTH-CV 14.7 % (11.8-14.6); RBC DIS.WIDTH-SD 48.8 % (39-53); WHITE BLOOD COUNT 7.1 K/uL (4.1-10.2)
[2017-03-21 06:36] LABS: INTER. NORMALIZED RATIO 2.1; PROTHROMBIN TIME 23.8 SEC (10.2-12.9)
[2017-03-21 07:00] LABS: ANION GAP 4 MEQ/L (2-14); CHLORIDE 96 MEQ/L (99-109); GFR ESTIMATE (CALCULATED) 54 mL/min/; GLUCOSE 165 mg/dL (70-99); POTASSIUM 5.2 MEQ/L (3.7-5.4); SAMPLE HEMOLYSIS CHECK 0; SAMPLE ICTERIC CHECK 0; SAMPLE LIPEMIA CHECK 0; SODIUM 137 MEQ/L (136-147); UREA NITROGEN (BUN) 58 mg/dL (9-23)
[2017-03-21 07:03] LABS: POINT-OF-CARE METER ID UU13113717
[2017-03-21 07:10] VITALS: BP 159/76
[2017-03-21] MEDS ORDERED: CLONIDINE HCL0.1 MG PO (10:57)
[2017-03-21] MEDS ORDERED: QUETIAPINE FUMA50 MG PO (10:58)
[2017-03-21] MEDS ORDERED: BUMETANIDE1 MG PO (10:58)
[2017-03-21] MEDS ORDERED: PREDNISONE20 MG PO (10:59)
[2017-03-21] MEDS ORDERED: DOXYCYCLINE HY100 M3 PO (11:02)
[2017-03-21 11:09] VITALS: BP 151/67
[2017-03-21 12:10] LABS: POINT-OF-CARE METER ID UU14174225
[2017-03-21 15:08] VITALS: BP 137/91
== END 2017-03-21 16:32 | DRG 853 ==
LOC: EME → EDBD 02:37 → EME 02:37 → 5SOUTH 07:40 → 4EAST 07:40 → EDOF 07:40 → 4WEST 07:40 → ENRESERV 07:41 → 5SOUTH 08:39 → ENRESERV 03-13 11:17 → CANRESERV 03-13 11:17 → ENRESERV 03-13 11:21 → 4WEST 03-13 11:42 → ENRESERV 03-15 19:57 → 4EAST 03-15 21:26 → ENRESERV 03-20 12:52 → 5SOUTH 03-20 17:10
PROVIDERS: Emergency Medicine; Hospitalist; Internal Medicine; Internal Medicine Critical Care Medicine; Internal Medicine Nephrology; Nurse Practitioner Adult Health; Surgery
PROC: 5A09357 Assistance with Respiratory Ventilation, Less than 24 Consecutive Hours, Continuous Positive Airway Pressure (ICD-10-PCS; 2017-03-10)
PROC: 0Y6W0Z0 Detachment at Left 4th Toe, Complete, Open Approach (ICD-10-PCS; principal; 2017-03-17)
DX: A41.9 Sepsis, unspecified organism (principal); J96.21 Acute and chronic respiratory failure with hypoxia; J96.22 Acute and chronic respiratory failure with hypercapnia; L89.623 Pressure ulcer of left heel, stage 3; L03.116 Cellulitis of left lower limb; Z68.43 Body mass index [BMI] 50.0-59.9, adult; N17.9 Acute kidney failure, unspecified; N39.0 Urinary tract infection, site not specified; J98.11 Atelectasis; E66.2 Morbid (severe) obesity with alveolar hypoventilation; J90 Pleural effusion, not elsewhere classified; J44.1 Chronic obstructive pulmonary disease with (acute) exacerbation; I50.42 Chronic combined systolic (congestive) and diastolic (congestive) heart failure; I42.9 Cardiomyopathy, unspecified; E87.4 Mixed disorder of acid-base balance; I13.0 Hypertensive heart and chronic kidney disease with heart failure and stage 1 through stage 4 chronic kidney disease, or unspecified chronic kidney disease; I70.262 Atherosclerosis of native arteries of extremities with gangrene, left leg; E11.52 Type 2 diabetes mellitus with diabetic peripheral angiopathy with gangrene; M86.172 Other acute osteomyelitis, left ankle and foot; L02.612 Cutaneous abscess of left foot; L97.829 Non-pressure chronic ulcer of other part of left lower leg with unspecified severity; L03.032 Cellulitis of left toe; K21.9 Gastro-esophageal reflux disease without esophagitis; R79.1 Abnormal coagulation profile; T45.515A Adverse effect of anticoagulants, initial encounter; N18.3 Chronic kidney disease, stage 3 (moderate); I48.0 Paroxysmal atrial fibrillation; E11.21 Type 2 diabetes mellitus with diabetic nephropathy; D69.6 Thrombocytopenia, unspecified; E11.22 Type 2 diabetes mellitus with diabetic chronic kidney disease; E11.42 Type 2 diabetes mellitus with diabetic polyneuropathy; E11.621 Type 2 diabetes mellitus with foot ulcer; E11.65 Type 2 diabetes mellitus with hyperglycemia; I87.2 Venous insufficiency (chronic) (peripheral); E11.69 Type 2 diabetes mellitus with other specified complication; I89.0 Lymphedema, not elsewhere classified; R15.9 Full incontinence of feces; D63.8 Anemia in other chronic diseases classified elsewhere; B95.62 Methicillin resistant Staphylococcus aureus infection as the cause of diseases classified elsewhere; Z16.24 Resistance to multiple antibiotics; L89.520 Pressure ulcer of left ankle, unstageable; L97.524 Non-pressure chronic ulcer of other part of left foot with necrosis of bone; I45.10 Unspecified right bundle-branch block; Z91.19 Patient's noncompliance with other medical treatment and regimen; Z99.81 Dependence on supplemental oxygen; Z95.1 Presence of aortocoronary bypass graft; Z89.611 Acquired absence of right leg above knee; Z89.422 Acquired absence of other left toe(s); Z89.412 Acquired absence of left great toe; Z87.891 Personal history of nicotine dependence; Z87.11 Personal history of peptic ulcer disease; Z86.73 Personal history of transient ischemic attack (TIA), and cerebral infarction without residual deficits; Z79.4 Long term (current) use of insulin; Z79.01 Long term (current) use of anticoagulants; Z98.62 Peripheral vascular angioplasty status; Z86.14 Personal history of Methicillin resistant Staphylococcus aureus infection; Z83.3 Family history of diabetes mellitus; Z82.49 Family history of ischemic heart disease and other diseases of the circulatory system
CPT/HCPCS: 36600; 71010; 71250; 73630; 73720; 80048; 80048 91; 80069; 80202; 81003; 82010; 82728; 82803; 82948; 83036; 83540; 83605; 83735; 83880; 84466; 84484; 84550; 84999; 85025; 85027; 85610; 87040; 87070; 87075; 87076; 87077; 87086; 87147; 87185; 87186; 87205; 87641; 88305; 88311; 93005; 93971; 94002; 94640; 94640 76; 94660; 94760; 94799; 97530 GO; 97530 GP; 99202; 99281; 99285; J0330; J0360; J0696; J0881; J1100; J1170; J1650; J1815; J1885; J2405; J3010; J3370; J7030; J7040; J7050; J7512; S0028

== ENCOUNTER 2017-11-25 02:05 | Inpatient (IN) | payer OTHER, MEDICARE ==
[2017-11-25] VITALS (8 sets, daily range): BP systolic 120–202; BP diastolic 57–84
[~2017-11-25] VITALS: Ht 182.9 cm; Wt 190.0 kg
[~2017-11-25 02:05] MED LIST changes: +ALLERGY RELIE15.8 ML BOTH NARES; +ASCORBIC ACID250 MG PO; +BUMETANIDE1 MG PO; +BUMEX1 MG PO; +CARVEDILOL6.25 MG PO; +CLONIDINE HCL0.1 MG PO; +COUMADIN1 MG PO; +COZAAR25 MG PO; +ERGOCALCIF50000 UNIT PO; +GLUCOSE GEL38 GM PO; +IRON325 M1 PO; +LEVEMIR100 UNIT/2 SC; +MECLIZINE HCL12.5 M1 PO; +NEURONTIN300 MG PO; +PROCRIT10000 UNI1 IV; +QUETIAPINE FUMA50 MG PO; +SENNA-S TABLET1 EACH PO; +TYLENOL ARTHRI650 MG PO; +ZYVOX600 MG PO
[2017-11-25 04:07] LABS: HEMATOCRIT 36.2 % (38.0-50.0); HEMOGLOBIN 11.5 G/DL (12.5-16.6); MCH 28.4 PG (29.0-34.0); MCHC 31.8 G/DL (30.0-36.0); MCV 89.4 FL (86-99); PLATELET COUNT 216 K/uL (156-360); RBC DIS.WIDTH-CV 13.1 % (11.8-14.6); RBC DIS.WIDTH-SD 43.1 % (39-53); RED BLOOD COUNT 4.05 M/uL (4.00-5.50); WHITE BLOOD COUNT 13.5 K/uL (4.1-10.2)
[2017-11-25 04:16] LABS: INTER. NORMALIZED RATIO 1.1
[2017-11-25 04:18] LABS: CHLORIDE 97 mEq/L (99-109); POTASSIUM 3.7 mEq/L (3.7-5.4); PTT 36.9 SEC (25-37); SODIUM 143 mEq/L (136-147)
[2017-11-25 04:20] LABS: GLUCOSE 128 mg/dL (70-99)
[2017-11-25 04:24] LABS: CREATININE 1.3 mg/dL (0.6-1.3); GFR ESTIMATE (CALCULATED) 58 mL/min/ (58.99-99999)
[2017-11-25 04:25] LABS: UREA NITROGEN (BUN) 45 mg/dL (9-23)
[2017-11-25 06:44] LABS: TROP-I INTERPRETATION NEGATIVE; TROPONIN-I 0.03 ng/mL (0.0-0.30)
[2017-11-25 12:28] LABS: TROP-I INTERPRETATION NEGATIVE; TROPONIN-I 0.03 ng/mL (0.0-0.30)
[2017-11-25] MEDS ORDERED: PERCOCET 5/31 TABLET PO (12:48)
[2017-11-25] MEDS ORDERED: CATAPRES0.2 MG PO (12:50)
[2017-11-25] MEDS ORDERED: NOVOLOG PE100 UNITS/ SC (12:55)
[2017-11-25] MEDS ORDERED: APRESOLINE50 MG PO (12:56)
[2017-11-25] MEDS ORDERED: ELIQUIS5 MG PO (12:58)
[2017-11-25] MEDS ORDERED: HUMULIN R500 UNITS/ SC (13:02)
[2017-11-25] MEDS ORDERED: CATAPRES0.1 MG PO (13:03)
[2017-11-25] MEDS ORDERED: COREG25 M1 PO (13:03)
[2017-11-25] MEDS ORDERED: VITAMIN B-6100 MG PO (13:06)
[2017-11-25] MEDS ORDERED: VITAMIN D34000 UNIT PO (13:08)
[2017-11-25] MEDS ORDERED: THERA-D4000 UNIT PO (13:09)
[2017-11-25] MEDS ORDERED: CYMBALTA30 MG PO (13:09)
[2017-11-25] MEDS ORDERED: FEROSUL325 MG PO (13:10)
[2017-11-25] MEDS ORDERED: CLARITIN,ALAVAR10 MG PO (13:13)
[2017-11-25] MEDS ORDERED: BUMEX1 MG PO ×2 (13:14)
[2017-11-25 18:47] LABS: TROP-I INTERPRETATION NEGATIVE; TROPONIN-I 0.04 ng/mL (0.0-0.30)
[2017-11-26 04:04] VITALS: BP 139/64
[2017-11-26 05:50] LABS: HEMOGLOBIN 9.9 G/DL (12.5-16.6); MCHC 30.9 G/DL (30.0-36.0); MCV 90.4 FL (86-99); PLATELET COUNT 166 K/uL (156-360); RBC DIS.WIDTH-CV 13.4 % (11.8-14.6); RBC DIS.WIDTH-SD 44.2 % (39-53); RED BLOOD COUNT 3.54 M/uL (4.00-5.50); WHITE BLOOD COUNT 6.7 K/uL (4.1-10.2)
[2017-11-26 06:12] LABS: ALBUMIN 2.9 G/DL (3.2-4.8); ALKALINE PHOSPHATASE 65 IU/L (3-129); ALT (GPT) 14 IU/L (3-49); AST (GOT) 27 IU/L (2-34); CHLORIDE 97 MEQ/L (99-109); CREATININE 1.4 MG/DL (0.6-1.3); DIRECT BILIRUBIN 0.1 mg/dL (0.0-0.3); GFR ESTIMATE (CALCULATED) 54 mL/min/ (58.99-99999); MAGNESIUM 2.1 mg/dl (1.3-2.7); SODIUM 138 MEQ/L (136-147); TOTAL BILIRUBIN 0.3 MG/DL (0.0-1.0); TOTAL PROTEIN 5.9 G/DL (6.4-8.3); UREA NITROGEN (BUN) 43 mg/dL (9-23)
[2017-11-26 06:14] LABS: GLUCOSE 324 mg/dL (70-99); POTASSIUM 5.3 MEQ/L (3.7-5.4)
[2017-11-26 08:30] VITALS: BP 180/77
[2017-11-26 11:37] VITALS: BP 158/69
[2017-11-26 16:00] VITALS: BP 180/79
[2017-11-26 21:00] VITALS: BP 200/82
[2017-11-27] VITALS (7 sets, daily range): BP systolic 147–191; BP diastolic 65–86
[2017-11-27 10:28] LABS: HEMOGLOBIN A1c (GLYCOHEMOGLOB) 7.9 % (Below 5.7)
[2017-11-27 10:42] LABS: CHLORIDE 98 MEQ/L (99-109); CREATININE 1.3 MG/DL (0.6-1.3); GFR ESTIMATE (CALCULATED) 58 mL/min/ (58.99-99999); GLUCOSE 196 mg/dL (70-99); SODIUM 141 MEQ/L (136-147); UREA NITROGEN (BUN) 37 mg/dL (9-23)
[2017-11-28 02:21] VITALS: BP 128/74
[2017-11-28 06:01] LABS: HEMATOCRIT 32.7 % (38.0-50.0); MCH 27.3 PG (29.0-34.0); MCHC 30.6 G/DL (30.0-36.0); MCV 89.3 FL (86-99); PLATELET COUNT 173 K/uL (156-360); RBC DIS.WIDTH-CV 13.2 % (11.8-14.6); RED BLOOD COUNT 3.66 M/uL (4.00-5.50); WHITE BLOOD COUNT 5.8 K/uL (4.1-10.2)
[2017-11-28 06:55] VITALS: BP 188/79
[2017-11-28 06:57] LABS: CHLORIDE 98 MEQ/L (99-109); CREATININE 1.3 MG/DL (0.6-1.3); GFR ESTIMATE (CALCULATED) 58 mL/min/ (58.99-99999); MAGNESIUM 2.1 mg/dl (1.3-2.7); POTASSIUM 4.6 MEQ/L (3.7-5.4); SODIUM 142 MEQ/L (136-147); UREA NITROGEN (BUN) 35 mg/dL (9-23)
[2017-11-28 07:15] LABS: GLUCOSE 75 mg/dL (70-99)
[2017-11-28 11:20] VITALS: BP 191/77
[2017-11-28 15:15] VITALS: BP 16/101
[2017-11-28 19:44] VITALS: BP 136/62
[2017-11-28 23:37] VITALS: BP 162/67
[2017-11-29 03:59] VITALS: BP 150/71
[2017-11-29 07:30] VITALS: BP 222/95
[2017-11-29 08:47] VITALS: BP 182/74
[2017-11-29 10:49] VITALS: BP 145/63
[2017-11-29 12:59] VITALS: BP 156/70
[2017-11-29] MEDS ORDERED: CLONIDINE HCL0.1 MG PO (13:51)
[2017-11-29] MEDS ORDERED: LOSARTAN POTASS50 MG PO (13:52)
[2017-11-29] MEDS ORDERED: HUMULIN R500 UNITS/ SC (13:53)
[2017-11-29 15:57] VITALS: BP 146/63
== END 2017-11-29 17:32 | DRG 623 ==
LOC: EME → EDBD 02:05 → 4EAST 04:45 → EDOF 04:45 → 5EAST 04:45 → ENRESERV 04:48 → 4EAST 07:13 → ENRESERV 11-27 11:32 → 5EAST 11-27 16:12 → ENPENDDIS 11-29 17:00 → 5EAST 11-29 17:32
PROVIDERS: Emergency Medicine; Hospitalist; Internal Medicine
PROC: 0JBR0ZZ Excision of Left Foot Subcutaneous Tissue and Fascia, Open Approach (ICD-10-PCS; principal; 2017-11-29)
DX: E11.649 Type 2 diabetes mellitus with hypoglycemia without coma (principal); E87.2 Acidosis; N17.9 Acute kidney failure, unspecified; J96.10 Chronic respiratory failure, unspecified whether with hypoxia or hypercapnia; Z99.81 Dependence on supplemental oxygen; I13.0 Hypertensive heart and chronic kidney disease with heart failure and stage 1 through stage 4 chronic kidney disease, or unspecified chronic kidney disease; I50.42 Chronic combined systolic (congestive) and diastolic (congestive) heart failure; N18.3 Chronic kidney disease, stage 3 (moderate); E11.22 Type 2 diabetes mellitus with diabetic chronic kidney disease; E11.40 Type 2 diabetes mellitus with diabetic neuropathy, unspecified; E11.51 Type 2 diabetes mellitus with diabetic peripheral angiopathy without gangrene; I48.0 Paroxysmal atrial fibrillation; R56.9 Unspecified convulsions; E11.621 Type 2 diabetes mellitus with foot ulcer; L97.428 Non-pressure chronic ulcer of left heel and midfoot with other specified severity; S50.821A Blister (nonthermal) of right forearm, initial encounter; L25.9 Unspecified contact dermatitis, unspecified cause; J44.9 Chronic obstructive pulmonary disease, unspecified; G47.33 Obstructive sleep apnea (adult) (pediatric); I89.0 Lymphedema, not elsewhere classified; D50.9 Iron deficiency anemia, unspecified; E66.01 Morbid (severe) obesity due to excess calories; Z68.43 Body mass index [BMI] 50.0-59.9, adult; Z91.19 Patient's noncompliance with other medical treatment and regimen; I25.2 Old myocardial infarction; Z95.1 Presence of aortocoronary bypass graft; Z22.322 Carrier or suspected carrier of Methicillin resistant Staphylococcus aureus; Z79.4 Long term (current) use of insulin; Z86.73 Personal history of transient ischemic attack (TIA), and cerebral infarction without residual deficits; Z87.11 Personal history of peptic ulcer disease; Z87.891 Personal history of nicotine dependence; Z89.412 Acquired absence of left great toe; Z89.611 Acquired absence of right leg above knee; Z79.02 Long term (current) use of antithrombotics/antiplatelets
CPT/HCPCS: 36600; 70450; 71045; 80048; 80076; 81003; 82948; 83036; 83735; 84484; 85027; 85610; 85730; 87070; 87075; 87205; 87641; 94799; 95819; 99281; 99285; A6212; A6260; J1650; J1815; J7042; Q0177

== ENCOUNTER 2017-12-01 01:31 | Inpatient (IN) | payer OTHER, MEDICARE ==
[~2017-12-01] VITALS: Ht 182.9 cm; Wt 145.6 kg
[~2017-12-01 01:31] MED LIST changes: +APRESOLINE50 MG PO; +CATAPRES0.1 MG PO; +CATAPRES0.2 MG PO; +CLARITIN,ALAVAR10 MG PO; +COREG25 M1 PO; +CYMBALTA30 MG PO; +ELIQUIS5 MG PO; +HUMULIN R500 UNITS/ SC; +LOSARTAN POTASS50 MG PO; +THERA-D4000 UNIT PO; +VITAMIN B-6100 MG PO; +VITAMIN D34000 UNIT PO
[2017-12-01 02:24] LABS: HEMATOCRIT 38.9 % (38.0-50.0); HEMOGLOBIN 12.6 G/DL (12.5-16.6); MCHC 32.4 G/DL (30.0-36.0); MCV 86.4 FL (86-99); PLATELET COUNT 221 K/uL (156-360); RBC DIS.WIDTH-CV 13.5 % (11.8-14.6); WHITE BLOOD COUNT 15.7 K/uL (4.1-10.2)
[2017-12-01 02:26] LABS: INTER. NORMALIZED RATIO 1.1
[2017-12-01 02:30] LABS: ALBUMIN 3.7 g/dL (3.2-4.8)
[2017-12-01 02:31] LABS: CHLORIDE 97 mEq/L (99-109); POTASSIUM 3.7 mEq/L (3.7-5.4); SODIUM 140 mEq/L (136-147)
[2017-12-01 02:33] LABS: TOTAL PROTEIN 8.1 g/dL (6.4-8.3)
[2017-12-01 02:35] LABS: TOTAL BILIRUBIN 0.4 mg/dL (0.0-1.0)
[2017-12-01 02:36] LABS: ALKALINE PHOSPHATASE 86 IU/L (3-129)
[2017-12-01 02:37] LABS: CREATININE 1.5 mg/dL (0.6-1.3); GFR ESTIMATE (CALCULATED) 49 mL/min/ (58.99-99999)
[2017-12-01 02:38] LABS: AST (GOT) 47 IU/L (2-34); UREA NITROGEN (BUN) 36 mg/dL (9-23)
[2017-12-01 02:39] LABS: ALT (GPT) 24 IU/L (3-49)
[2017-12-01 02:40] LABS: LIPASE 23 U/L (1.0-51.0)
[2017-12-01 02:52] LABS: GLUCOSE 29 mg/dL (70-99)
[2017-12-01 02:59] LABS: APPEARANCE CLEAR ((CLEAR)); BILIRUBIN NEGATIVE; BLOOD SMALL; COLOR STRAW ((YELLOW)); GLUCOSE (STRIP) NEGATIVE; KETONES NEGATIVE; LEUKOCYTES NEGATIVE; NITRITE NEGATIVE; PROTEIN (STRIP) >=500; SPECIFIC GRAVITY 1.011 (1.000-1.030); UROBILINOGEN 0.2 MG/DL (0.2-1.0)
[2017-12-01 03:06] LABS: BACTERIA RARE /HPF; EPITHELIAL CELLS RARE /HPF; MUCUS TRACE /LPF; UCUL ADDED? NO; WHITE BLOOD CELLS 0-5 /HPF (0-5)
[2017-12-01 03:42] LABS: COMMENTS - BLOOD GASES C+; DEVICE NRBM; O2 FLOW 15 L/MIN; SITE LR
[2017-12-01 03:43] LABS: BICARBONATE 40.1 mEq/L (22-26); CARBOXY HGB 1.2 % (0-5); FI02 100 %; METHEMOGLOBIN 0.7 % (0-1.5); PCO2 71 mm Hg (35-45); PO2 226 mm Hg (80-100); TOTAL RESP RATE 14 resp/min; pH 7.36 (7.35-7.45)
[2017-12-01 08:01] VITALS: BP 188/80
[2017-12-01 09:58] LABS: TROP-I INTERPRETATION NEGATIVE; TROPONIN-I 0.06 ng/mL (0.0-0.30)
[2017-12-01 12:18] LABS: TROP-I INTERPRETATION NEGATIVE; TROPONIN-I 0.06 ng/mL (0.0-0.30)
[2017-12-01 12:43] VITALS: BP 157/68
[2017-12-01 15:07] VITALS: BP 140/63
[2017-12-01 19:09] VITALS: BP 132/62
[2017-12-01 23:58] VITALS: BP 144/65
[2017-12-02] VITALS (7 sets, daily range): BP systolic 108–172; BP diastolic 48–72
[2017-12-02 06:16] LABS: CHLORIDE 95 MEQ/L (99-109); SODIUM 137 MEQ/L (136-147); UREA NITROGEN (BUN) 37 mg/dL (9-23)
[2017-12-02 06:20] LABS: CREATININE 2.1 MG/DL (0.6-1.3); GFR ESTIMATE (CALCULATED) 34 mL/min/ (58.99-99999); GLUCOSE 328 mg/dL (70-99); POTASSIUM 4.5 MEQ/L (3.7-5.4)
[2017-12-02 07:02] LABS: MCH 28.1 PG (29.0-34.0); MCHC 31.9 G/DL (30.0-36.0); MCV 88.1 FL (86-99); RBC DIS.WIDTH-CV 13.5 % (11.8-14.6); RBC DIS.WIDTH-SD 43.8 % (39-53); WHITE BLOOD COUNT 7.1 K/uL (4.1-10.2)
[2017-12-02 07:18] LABS: HEMOGLOBIN 9.9 G/DL (12.5-16.6); RED BLOOD COUNT 3.52 M/uL (4.00-5.50)
[2017-12-02 07:19] LABS: PLAT.SUFFICIENCY ADEQUATE; PLATELET CLUMPS PRESENT - PLATELET COUNT APPEARS ADEQUATE
[2017-12-02 07:36] LABS: PLATELET COUNT UNABLE TO REPORT K/uL (156-360)
[2017-12-02] MEDS ORDERED: ALL DAY ALLERGY10 M2 PO (20:19)
[2017-12-02] MEDS ORDERED: HUMULIN R500 UNITS/ SC (20:26)
[2017-12-02] MEDS ORDERED: NOVOLOG PE100 UNITS/ SC (20:42)
[2017-12-02] MEDS ORDERED: CATAPRES0.1 MG PO (20:50)
[2017-12-03 04:01] VITALS: BP 162/70
[2017-12-03 08:07] VITALS: BP 148/66
[2017-12-03 09:18] LABS: CHLORIDE 97 MEQ/L (99-109); CREATININE 1.9 MG/DL (0.6-1.3); GFR ESTIMATE (CALCULATED) 38 mL/min/ (58.99-99999); GLUCOSE 268 mg/dL (70-99); POTASSIUM 4.4 MEQ/L (3.7-5.4); SODIUM 138 MEQ/L (136-147); UREA NITROGEN (BUN) 43 mg/dL (9-23)
[2017-12-03 12:13] VITALS: BP 146/64
[2017-12-03 16:54] VITALS: BP 169/70
[2017-12-03 23:10] VITALS: BP 138/63
[2017-12-04 06:29] LABS: HEMATOCRIT 31.5 % (38.0-50.0); HEMOGLOBIN 10.1 G/DL (12.5-16.6); MCH 28.1 PG (29.0-34.0); MCHC 32.1 G/DL (30.0-36.0); MCV 87.5 FL (86-99); RBC DIS.WIDTH-CV 13.2 % (11.8-14.6); RBC DIS.WIDTH-SD 42.5 % (39-53); WHITE BLOOD COUNT 6.4 K/uL (4.1-10.2)
[2017-12-04 06:31] LABS: PLATELET COUNT 135 K/uL (156-360)
[2017-12-04 06:56] LABS: CHLORIDE 97 MEQ/L (99-109); GFR ESTIMATE (CALCULATED) 54 mL/min/ (58.99-99999); GLUCOSE 166 mg/dL (70-99); POTASSIUM 4.1 MEQ/L (3.7-5.4); SODIUM 140 MEQ/L (136-147); UREA NITROGEN (BUN) 38 mg/dL (9-23)
[2017-12-04 06:57] LABS: CREATININE 1.4 MG/DL (0.6-1.3)
[2017-12-04 08:04] VITALS: BP 145/66
[2017-12-04 15:55] VITALS: BP 175/77
[2017-12-04 23:49] VITALS: BP 103/50
[2017-12-05 08:29] VITALS: BP 140/60
[2017-12-05 09:18] LABS: HEMATOCRIT 33.6 % (38.0-50.0); HEMOGLOBIN 10.8 G/DL (12.5-16.6); MCH 28.2 PG (29.0-34.0); MCHC 32.1 G/DL (30.0-36.0); MCV 87.7 FL (86-99); PLATELET COUNT 158 K/uL (156-360); RBC DIS.WIDTH-CV 13.1 % (11.8-14.6); RED BLOOD COUNT 3.83 M/uL (4.00-5.50)
[2017-12-05 09:35] LABS: CHLORIDE 97 MEQ/L (99-109); POTASSIUM 4.1 MEQ/L (3.7-5.4); SODIUM 138 MEQ/L (136-147)
[2017-12-05 09:40] LABS: CREATININE 1.3 MG/DL (0.6-1.3); GFR ESTIMATE (CALCULATED) 58 mL/min/ (58.99-99999); GLUCOSE 243 mg/dL (70-99); UREA NITROGEN (BUN) 34 mg/dL (9-23)
[2017-12-05 15:58] VITALS: BP 160/80
[2017-12-05 23:10] VITALS: BP 150/68
[2017-12-06 07:30] LABS: BASOPHIL (%) 0.6 % (0-1); EOSINOPHIL (%) 3.5 % (0-5); EOSINOPHIL COUNT 0.2 K/uL (0-0.3); HEMATOCRIT 30.7 % (38.0-50.0); HEMOGLOBIN 9.8 G/DL (12.5-16.6); IMMATURE GRANULOCYTE (%) 0.3 % (0.0-0.7); LYMPHOCYTE (%) 21.3 % (15-42); LYMPHOCYTE COUNT 1.3 K/uL (1.0-2.8); MCHC 31.9 G/DL (30.0-36.0); MCV 87.7 FL (86-99); MONOCYTE (%) 6.1 % (3-12); MONOCYTE COUNT 0.4 K/uL (0-0.8); NEUTROPHIL (%) 68.2 % (45-76); NEUTROPHIL COUNT 4.3 K/uL (1.8-6.4); PLATELET COUNT 151 K/uL (156-360); RBC DIS.WIDTH-CV 13.2 % (11.8-14.6); RBC DIS.WIDTH-SD 42.5 % (39-53); WHITE BLOOD COUNT 6.2 K/uL (4.1-10.2)
[2017-12-06 07:33] VITALS: BP 149/66
[2017-12-06 07:53] LABS: CHLORIDE 96 MEQ/L (99-109); CREATININE 1.5 MG/DL (0.6-1.3); GFR ESTIMATE (CALCULATED) 49 mL/min/ (58.99-99999); GLUCOSE 229 mg/dL (70-99); POTASSIUM 4.6 MEQ/L (3.7-5.4); SODIUM 137 MEQ/L (136-147); UREA NITROGEN (BUN) 39 mg/dL (9-23)
[2017-12-06 11:07] VITALS: BP 122/56
[2017-12-06 15:24] VITALS: BP 166/74
[2017-12-07 00:01] VITALS: BP 128/53
[2017-12-07 06:06] LABS: HEMATOCRIT 30.4 % (38.0-50.0); HEMOGLOBIN 9.6 G/DL (12.5-16.6); MCH 27.7 PG (29.0-34.0); MCHC 31.6 G/DL (30.0-36.0); MCV 87.9 FL (86-99); PLATELET COUNT 158 K/uL (156-360); RBC DIS.WIDTH-CV 13.2 % (11.8-14.6); RBC DIS.WIDTH-SD 42.3 % (39-53); RED BLOOD COUNT 3.46 M/uL (4.00-5.50); WHITE BLOOD COUNT 6.6 K/uL (4.1-10.2)
[2017-12-07 06:26] LABS: CHLORIDE 96 MEQ/L (99-109); CREATININE 1.4 MG/DL (0.6-1.3); GFR ESTIMATE (CALCULATED) 54 mL/min/ (58.99-99999); GLUCOSE 157 mg/dL (70-99); POTASSIUM 4.4 MEQ/L (3.7-5.4); SODIUM 139 MEQ/L (136-147); UREA NITROGEN (BUN) 41 mg/dL (9-23)
[2017-12-07 07:51] VITALS: BP 144/63
[2017-12-07 16:05] VITALS: BP 127/58
[2017-12-07 23:53] VITALS: BP 178/79
[2017-12-08 06:37] LABS: HEMATOCRIT 32.5 % (38.0-50.0); HEMOGLOBIN 10.2 G/DL (12.5-16.6); MCH 27.4 PG (29.0-34.0); MCHC 31.4 G/DL (30.0-36.0); MCV 87.4 FL (86-99); PLATELET COUNT 169 K/uL (156-360); RBC DIS.WIDTH-CV 13.2 % (11.8-14.6); RBC DIS.WIDTH-SD 41.7 % (39-53); RED BLOOD COUNT 3.72 M/uL (4.00-5.50); WHITE BLOOD COUNT 5.8 K/uL (4.1-10.2)
[2017-12-08 07:02] LABS: CHLORIDE 95 MEQ/L (99-109); CREATININE 1.2 MG/DL (0.6-1.3); GFR ESTIMATE (CALCULATED) > 59 mL/min/ (58.99-99999); GLUCOSE 166 mg/dL (70-99); MAGNESIUM 1.9 mg/dl (1.3-2.7); POTASSIUM 4.2 MEQ/L (3.7-5.4); SODIUM 138 MEQ/L (136-147); UREA NITROGEN (BUN) 36 mg/dL (9-23)
[2017-12-08 07:32] VITALS: BP 138/66
[2017-12-08 11:16] LABS: C DIFF TOXIN NEGATIVE (NEGATIVE)
[2017-12-08] MEDS ORDERED: CLONIDINE HCL0.1 MG PO (13:42)
[2017-12-08] MEDS ORDERED: HUMULIN R500 UNITS/ SC ×2 (13:42)
== END 2017-12-08 15:27 | DRG 637 ==
LOC: EME → EDBD 01:31 → EME 01:31 → 3EAST 05:07 → 4EAST 05:07 → EDOF 05:07 → ENRESERV 05:10 → 4EAST 07:06 → ENRESERV 12-02 11:01 → 3EAST 12-02 13:39
PROVIDERS: Emergency Medicine; Hospitalist; Internal Medicine; Nurse Practitioner Adult Health
DX: E11.649 Type 2 diabetes mellitus with hypoglycemia without coma (principal); G93.41 Metabolic encephalopathy; R65.10 Systemic inflammatory response syndrome (SIRS) of non-infectious origin without acute organ dysfunction; E11.22 Type 2 diabetes mellitus with diabetic chronic kidney disease; E11.40 Type 2 diabetes mellitus with diabetic neuropathy, unspecified; E11.51 Type 2 diabetes mellitus with diabetic peripheral angiopathy without gangrene; E11.621 Type 2 diabetes mellitus with foot ulcer; L97.428 Non-pressure chronic ulcer of left heel and midfoot with other specified severity; E11.65 Type 2 diabetes mellitus with hyperglycemia; I13.0 Hypertensive heart and chronic kidney disease with heart failure and stage 1 through stage 4 chronic kidney disease, or unspecified chronic kidney disease; I50.42 Chronic combined systolic (congestive) and diastolic (congestive) heart failure; N18.3 Chronic kidney disease, stage 3 (moderate); I48.0 Paroxysmal atrial fibrillation; D63.8 Anemia in other chronic diseases classified elsewhere; G47.33 Obstructive sleep apnea (adult) (pediatric); I25.10 Atherosclerotic heart disease of native coronary artery without angina pectoris; I89.0 Lymphedema, not elsewhere classified; L25.9 Unspecified contact dermatitis, unspecified cause; E66.01 Morbid (severe) obesity due to excess calories; Z68.41 Body mass index [BMI] 40.0-44.9, adult; I25.2 Old myocardial infarction; Z95.1 Presence of aortocoronary bypass graft; Z79.4 Long term (current) use of insulin; Z86.73 Personal history of transient ischemic attack (TIA), and cerebral infarction without residual deficits; Z87.11 Personal history of peptic ulcer disease; Z87.891 Personal history of nicotine dependence; Z89.412 Acquired absence of left great toe; Z89.611 Acquired absence of right leg above knee; Z91.19 Patient's noncompliance with other medical treatment and regimen
CPT/HCPCS: 36600; 70450; 71045; 80048; 80053; 81003; 82948; 83605; 83690; 83735; 83880; 84484; 84681; 85025; 85027; 85610; 85730; 87040; 87493; 94760; 94799; 99281; 99285; A6212; J0690; J1815; J1940; J1956; J2310; J2354; J2543; J3370; J7060